=== PATIENT | male | born 1950 | race Caucasian/White ===

== ENCOUNTER → 2021-07-22 12:51 | Outpatient (BNVA) | payer MEDICARE, SELFPAY | PROVIDERS: PCP Internal Medicine; Visit Provider Urology | DX: R97.20 Elevated prostate specific antigen [PSA] (principal); N40.1 Benign prostatic hyperplasia with lower urinary tract symptoms; N13.8 Other obstructive and reflux uropathy; R33.9 Retention of urine, unspecified | CPT/HCPCS: 51798; 99212 ==

== ENCOUNTER 2022-01-16 11:23 | Outpatient (REF) | payer MEDICARE, SELFPAY ==
--- NOTE | ~2022-01-16 | US_ITS ---
EXAMINATION: US RETROPERITONEAL LIMITED (RENAL ONLY) CLINICAL INFORMATION: Acquired absence of kidney. COMPARISON: US abdomen complete 08/13/2019. CT abdomen and pelvis with contrast 12/09/2015. TECHNIQUE: Real-time imaging of the kidneys. FINDINGS: RIGHT KIDNEY: 12.6 x 7.0 x 7.4 cm (SAG x AP x TRV). The kidney is normal in size, contour, and echogenicity. Renal cortical thickness is normal. No renal calculi or focal parenchymal lesions. There is no hydronephrosis. LEFT KIDNEY: Surgically absent. US/US renal RT IMPRESSION: Mild right hydronephrosis of unknown etiology. No echogenic renal calculi seen. The left kidney is surgically absent.
[2022-01-16 14:23] LABS: Prostate Specific Antigen 4.12 ng/mL (<0.05-4.0)
== END 2022-01-16 11:24 | disposition home or self-care (01) ==
LOC: HO.HMGCX 11:23
PROVIDERS: Visit Provider Urology
DX: Z12.5 Encounter for screening for malignant neoplasm of prostate (principal); R97.20 Elevated prostate specific antigen [PSA]; Z90.5 Acquired absence of kidney
CPT/HCPCS: 36415; 76775; 84153

== ENCOUNTER → 2022-01-19 13:38 | Outpatient (BNVA) | payer MEDICARE, SELFPAY | PROVIDERS: PCP Internal Medicine; Visit Provider Urology | DX: N40.1 Benign prostatic hyperplasia with lower urinary tract symptoms (principal); R33.8 Other retention of urine; N13.8 Other obstructive and reflux uropathy; N31.9 Neuromuscular dysfunction of bladder, unspecified; Z79.899 Other long term (current) drug therapy | CPT/HCPCS: 51798; 99212 ==

== ENCOUNTER → 2022-02-23 09:43 | Outpatient (BNVA) | payer MEDICARE, SELFPAY | PROVIDERS: PCP Internal Medicine; Referring Provider Internal Medicine; Visit Provider Surgery | DX: L98.9 Disorder of the skin and subcutaneous tissue, unspecified (principal) | CPT/HCPCS: 99202 ==

== ENCOUNTER 2022-03-15 15:56 | Outpatient (REF) | payer MEDICARE, SELFPAY | END 2022-03-15 15:57 | disposition home or self-care (01) | LOC: HO.LNP 15:56 | PROVIDERS: PCP Internal Medicine; Visit Provider Surgery | DX: C44.619 Basal cell carcinoma of skin of left upper limb, including shoulder (principal) | CPT/HCPCS: 11403; 11604; 88305 ==

== ENCOUNTER → 2022-03-27 13:55 | Outpatient (BNVA) | payer MEDICARE, SELFPAY | PROVIDERS: PCP Internal Medicine; Visit Provider Surgery | DX: L98.9 Disorder of the skin and subcutaneous tissue, unspecified (principal) | CPT/HCPCS: 99212 ==

== ENCOUNTER → 2022-08-08 13:27 | Outpatient (BNVA) | payer MEDICARE, SELFPAY | PROVIDERS: PCP Internal Medicine; Visit Provider Urology | DX: N40.1 Benign prostatic hyperplasia with lower urinary tract symptoms (principal); N13.8 Other obstructive and reflux uropathy; R97.20 Elevated prostate specific antigen [PSA] | CPT/HCPCS: 51798; 99212 ==

== ENCOUNTER 2022-08-23 13:57 | Outpatient (REF) | payer MEDICARE, SELFPAY ==
--- NOTE | ~2022-08-23 | XR_ITS ---
EXAMINATION: XR LUMBOSACRAL SPINE CLINICAL INFORMATION: Spondylosis and lower back pain. COMPARISON: Portions of the MRI lumbar spine dated 07/28/2013. TECHNIQUE: AP and lateral views of the lumbar spine and lateral view of the lumbosacral junction. FINDINGS: There is bony demineralization. Vertebral body heights are normal. There is a moderate lumbar levoscoliosis. At L2-L3, there is mild posterior disc space narrowing. At L3-L4 and L4-L5, there is marked rightward disc space narrowing. At L5-S1, there is mild posterior disc space narrowing. No acute fracture or spondylolisthesis is seen. This multi-level lumbar spondylosis and facet arthropathy. There are aortoiliac atherosclerotic calcifications. There are left upper quadrant surgical clips. XR/XR lumbar spine 2-3V IMPRESSION: 1. No acute fracture or spondylolisthesis is seen. 2. There is a moderate lumbar levoscoliosis. 3. There is marked degenerative disc disease at L3-L4 and L4-L5, and mild degenerative disc disease is seen at L2-L3 and L5-S1. 4. There is multi-level lumbar spondylosis and facet arthropathy.
== END 2022-08-23 13:58 | disposition home or self-care (01) ==
LOC: HO.HMGCX 13:57
PROVIDERS: PCP Internal Medicine; Visit Provider Physical Medicine & Rehabilitation
DX: M54.51 Vertebrogenic low back pain (principal); M47.816 Spondylosis without myelopathy or radiculopathy, lumbar region
CPT/HCPCS: 72100

== ENCOUNTER 2022-11-21 15:57 | Outpatient (REF) | payer MEDICARE, SELFPAY ==
[2022-11-21 18:30] LABS: Appearance Urine Clear; Color Urine Yellow; Glucose Urine UA Negative (Negative); Leukocyte Esterase Urine Small (1+) (Negative); Nitrite Urine Negative (Negative); PH 5.5 (5.0-9.0); UMIC TRIGGER UA YES; Urine Blood Negative (Negative); Urine Ketones Negative (Negative); Urine Protein 30 (1+) mg/dL (Neg-Trace)
[2022-11-21 18:36] LABS: Bacteria Urine 4+ (None Seen); Hyaline Casts Urine 0-2 /LPF (0-2); RBC Urine 0-2 /HPF (0-2); Squamous Epithelial Cell Urine 0-2 /HPF (0-2); WBC Urine 21-50 /HPF (0-5)
== END 2022-11-21 15:58 | disposition home or self-care (01) ==
LOC: HO.LAB 15:57
PROVIDERS: PCP Internal Medicine; Visit Provider Urology
DX: R33.9 Retention of urine, unspecified (principal)
CPT/HCPCS: 81001; 87086

== ENCOUNTER 2022-12-08 14:36 | Outpatient (REF) | payer MEDICARE, SELFPAY | END 2022-12-08 14:37 | disposition home or self-care (01) | LOC: HO.HMGCLDS 14:36 | PROVIDERS: PCP Internal Medicine; Visit Provider Urology | DX: N40.1 Benign prostatic hyperplasia with lower urinary tract symptoms (principal); N13.8 Other obstructive and reflux uropathy | CPT/HCPCS: 81001; 87086 ==

== ENCOUNTER 2023-01-31 14:11 | Outpatient (REF) | payer MEDICARE, SELFPAY ==
[2023-01-31 18:10] LABS: Prostate Specific Antigen 4.94 ng/mL (<0.05-4.0)
== END 2023-01-31 14:12 | disposition home or self-care (01) ==
LOC: HO.HMGCLDS 14:11
PROVIDERS: PCP Internal Medicine; Visit Provider Urology
DX: Z12.5 Encounter for screening for malignant neoplasm of prostate (principal); R97.20 Elevated prostate specific antigen [PSA]
CPT/HCPCS: 36415; 84153

== ENCOUNTER 2023-02-06 12:50 | Outpatient (AMB) | payer MEDICARE, SELFPAY ==
--- NOTE | 2023-02-06 12:56 | A.OFFVIS_ITS ---
Intake Intake Visit Reasons: 6m/PSA/PVR(set) Intake Note: Patient is present for Follow Up PSA/PVR Urology Med: Tamsulosin Antibiotic Allergy: Clindamycin Blood Thinner: None Pharmacy: [facility] PVR: 202 Allergies prednisone [PREDNISONE] Allergy (Intermediate, Verified 02/06/23 13:03) HEART PALPATATIONS, heart palpitations clindamycin [CLINDAMYCIN] Allergy (Unknown, Verified 02/06/23 13:03) C-DIFF seasonal allergies Allergy (Unknown, Uncoded 02/06/23 13:03) Sneezing Medication List - Last Reconciled 02/06/23 by Nathan Hodges MD bethanechol chloride 50 mg PO BID 30 days cetirizine 10 mg PO DAILY clonazepam 1 tab PO BID dicyclomine 1 tab PO TID diltiazem HCl 240 mg PO DAILY levocetirizine 5 mg PO DAILY lisinopril 1 tab PO DAILY omeprazole 20 mg PO DAILY pravastatin 40 tabs PO DAILY sulfamethoxazole-trimethoprim 800-160 mg (Bactrim DS) 1 tab PO BID 7 days tamsulosin 0.8 mg (2 x 0.4 mg) PO BEDTIME 90 days HPI HPI Comments History of Present Illness Details Bertin Davalos is a very pleasant male. They are a patient of Dr Quiros. They are seen in the office today for the following urologic conditions. - lower urinary tract symptoms - recurrent UTI PVR today 200 Trial bethanechol Recommendation for male pelvic floor exercises May benefit from InterStim Neurogenic Bladder:? 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 PSA fell. Understands no sex with in 24 hours, no heavy exercise within 3 days ?12/20 PSA 6.1, 03/22 3.92 - falling. 07/24 5.4, 01/23 4.1, 01/24 4.9 ? They are here for ?further management for incomplete emptying neurogenic bladder.? Urinary retention initially found?occurred with C.diff episode in hospital early December 2015.? Cystoscopy results?prostate mild in size - minimal obstruction.? Current management?alpha blockers - tamsulosin ? Therapeutic plan?Follow PVR.? [facility] Medical History Acid reflux Anxiety Dyslipidemia H/O right bundle branch block HTN (hypertension) Skin lesion Spinal stenosis Stage 3 chronic kidney disease Surgical History H/O wisdom tooth extraction History of left nephrectomy History of surgical removal of skin lesion Family History Sister Dementia Father Leukemia Mother Brain cancer Paternal Grandfather Cancer Paternal Grandmother Cancer Social History Household Members: Spouse Housing: House Are you a primary post acute care registered nurse to a significant other at home: No Do you presently have visiting nurse or other home services: No Alcohol intake: current Alcohol intake frequency: 3 or more drinks per day Alcohol type: wine Patient Tobacco Use Status: Former Tobacco user service: Yes Current occupational status: retired Review of Systems Const Denies chills and Denies fever(s) Card Reports no additional complaints and Denies syncope Resp Denies cough GI Denies abdominal pain and Denies heartburn Reports as per HPI and Denies change in libido Neuro Denies syncope Psych Denies change in libido Endo Denies change in libido Physical Exam Const General: cooperative, healthy appearing, comfortable and no acute distress Orientation/consciousness: patient oriented x3 HEENT Face and sinus: Yes normal facial exam Mouth: moist mucous membranes Neck Neck: Yes normal visual inspection, Yes full ROM and Yes trachea midline Chest Chest palpation & inspection: normal inspection of the chest Resp Effort & Inspection: normal respiratory effort, able to speak in complete sentences and no respiratory distress GI Inspection: Yes normal to inspection Back/Spine/Pelvis Cervical Spine: normal cervical lordosis Thoracic/Lumbar Spine: thoracic and lumbar spine normal to inspection Skin General skin exam: no rashes or lesions noted Neuro General: patient oriented x3, gait normal, tone normal and moves all extremities Extrem General: Yes normal to inspection and Yes capillary refill normal Office Procedures Post Void Residual Post Residual Void Post Void Residual (PVR): 202 [id number] Void Residual by ultrasound Results AMB Urinalysis, Automated UA Leukoctes 0 Jose/uL Last Edit by CHIDI Castañeda on 02/06/23 13:08 UA Nitrite Negative Last Edit by CHIDI Castañeda on 02/06/23 13:08 UA Urobilinogen 0.2 mg/dL Last Edit by Tia Bales, RMA on 02/06/23 13:0 8 UA Protein 0 mg/dL Last Edit by Tia Bales, RMA on 02/06/23 13:08 UA pH 6.0 Last Edit by Tia Bales, RMA on 02/06/23 13:08 UA Blood 0 Chaz/uL Last Edit by Tia Bales, RMA on 02/06/23 13:08 UA Specific [place] 1.015 Last Edit by Tia Bales, RMA on 02/06/23 13: 08 UA Ketone Negative Last Edit by Tia Bales, RMA on 02/06/23 13:08 UA Bilirubin 0 mg/dL Last Edit by Tia Bales, RMA on 02/06/23 13:08 UA Glucose 0 mg/dL Last Edit by Tia Bales, RMA on 02/06/23 13:08 Results Reviewed Results Reviewed: Laboratory Last Values Urine pH (Auto) 6.0 02/06/23 13:07 Specific [place] (Auto) 1.015 02/06/23 13:07 Urine Protein (Auto) 0 mg/dL 02/06/23 13:07 Glucose (UA)(Auto) 0 mg/dL 02/06/23 13:07 Urine Ketones (Auto) Negative 02/06/23 13:07 Urine Blood (Auto) 0 Chaz/uL 02/06/23 13:07 Urine Nitrite (Auto) Negative 02/06/23 13:07 Urine Bilirubin (Auto) 0 mg/dL 02/06/23 13:07 Urine Urobilinogen (Auto) 0.2 mg/dL 02/06/23 13:07 Leukocyte Esterase (Auto) 0 Jose/uL 02/06/23 13:07 Assessment & Plan Assessment & Plan (1) BPH w urinary obs/LUTS: Code(s): N40.1 - Benign prostatic hyperplasia with lower urinary tract symptoms; N13.8 - Other obstructive and reflux uropathy (2) Urinary retention with incomplete bladder emptying: Code(s): R33.9 - Retention of urine, unspecified Plan Two month follow-up bethanechol Orders: Orders AMB Urinalysis Automated Today Z13.9 - Encounter for screening, unspecified AMB Post Void Residual by ultrasound Today N13.8 - Other obstructive and reflux uropathy, N40.1 - Benign prostatic hyperplasia with lower urinary tract symptoms Medications: New bethanechol chloride 50 mg PO BID 30 days 60 tabs 1RF N39.0 - Urinary tract infection, site not specified, R33.9 - Retention of urine, unspecified Patient Instructions: Imaging studies, laboratory and physical exam results were discussed and reviewed in detail. No major barriers to patient understanding were identified. An opportunity to ask questions regarding the treatment plan was provided. All questions were answered. The patient expressed understanding and agreement with the above treatment plan. The patient is aware they should contact our office by phone for worsening of their current condition or the appearance of new urologic symptoms. Compliance is encouraged with any medications and followup testing that is ordered. It is a privilege to participate in the urologic care of your patient. If you have any questions or concerns regarding treatment for the above conditions, or other urologic issues, please do not hesitate to contact me. The office telephone contact is [phone]. This note is constructed using voice recognition software. While every effort has been made to ensure accuracy journeyman pipefitter errors may have been included. Yours sincerely, Dr Nathan Hodges MD, FAINA [facility] - Urology Providers of Expert, Compassionate Care for the Genitourinary System Coding Level of Care Code Est Pt Level 4 (75830) Diagnoses BPH w urinary obs/LUTS N40.1; N13.8 Urinary retention with incomplete bladder emptying R33.9 CPT Codes Post Residual Void - PVR CPT Code: 56036-Xuxr Void Residual by ultrasound ([id number])
== END 2023-02-06 13:20 | disposition home or self-care (01) ==
PROVIDERS: PCP Internal Medicine; Visit Provider Urology
DX: N40.1 Benign prostatic hyperplasia with lower urinary tract symptoms (principal); N13.8 Other obstructive and reflux uropathy; R33.9 Retention of urine, unspecified; Z13.9 Encounter for screening, unspecified
CPT/HCPCS: 99214

== ENCOUNTER → 2023-02-06 12:50 | Outpatient (BNVA) | payer MEDICARE, SELFPAY | PROVIDERS: Visit Provider Urology | DX: N40.1 Benign prostatic hyperplasia with lower urinary tract symptoms (principal); N13.8 Other obstructive and reflux uropathy; R33.8 Other retention of urine | CPT/HCPCS: 51798; 81003; 99212 ==

== ENCOUNTER 2023-05-08 12:53 | Outpatient (AMB) | payer MEDICARE, SELFPAY ==
--- NOTE | 2023-05-08 13:05 | A.OFFVIS_ITS ---
Intake Intake Visit Reasons: 2m/PVR Intake Note: Patient is Present for Follow Up Urology Medication: Bethanechol, Tamsulosin Antibiotic Allergies: Clindamycin Blood Thinners: None PVR: 0 Complaints: Patient states that bethanechol has been working really. States that he has been double voiding at home Allergies prednisone [PREDNISONE] Allergy (Intermediate, Verified 05/08/23 13:06) HEART PALPATATIONS, heart palpitations clindamycin [CLINDAMYCIN] Allergy (Unknown, Verified 05/08/23 13:06) C-DIFF seasonal allergies Allergy (Unknown, Uncoded 05/08/23 13:06) Sneezing HPI HPI Comments History of Present Illness Details Bertin Davalos is a very pleasant male. He is a patient of Dr Quiros. He is seen for the following urologic conditions. - lower urinary tract symptoms - incomplete bladder emptying - recurrent UTI PVR today 0 cc Follow-up from trial of bethanechol Prior discussion regarding pelvic floor exercises and InterStim Recommendation for male pelvic floor exercises May benefit from InterStim Neurogenic Bladder:? 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 PSA fell. Understands no sex with in 24 hours, no heavy exercise within 3 days ?12/20 PSA 6.1, 03/22 3.92 - falling. 07/24 5.4, 01/23 4.1, 01/24 4.9 ? They are here for ?further management for incomplete emptying neurogenic bladder.? Urinary retention initially found?occurred with C.diff episode in hospital early December 2015.? Cystoscopy results?prostate mild in size - minimal obstruction.? Current management?alpha blockers - tamsulosin - prior PVR 200 ? Therapeutic plan?Follow PVR.? PFSH Medical History Skin lesion Spinal stenosis H/O right bundle branch block Stage 3 chronic kidney disease Anxiety Acid reflux Dyslipidemia HTN (hypertension) Surgical History History of surgical removal of skin lesion H/O wisdom tooth extraction History of left nephrectomy Family History Sister Dementia Father Leukemia Mother Brain cancer Paternal Grandfather Cancer Paternal Grandmother Cancer Social History Household Members: Spouse Housing: House Are you a primary child care centre director to a significant other at home: No Do you presently have visiting nurse or other home services: No Alcohol intake: current Alcohol intake frequency: 3 or more drinks per day Alcohol type: wine Patient Tobacco Use Status: Former Tobacco user service: Yes Current occupational status: retired Review of Systems Const Denies chills and Denies fever(s) Card Reports no additional complaints and Denies syncope Resp Denies cough GI Denies abdominal pain and Denies heartburn Reports as per HPI and Denies change in libido Neuro Denies syncope Psych Denies change in libido Endo Denies change in libido Physical Exam Const General: cooperative, healthy appearing, comfortable and no acute distress Orientation/consciousness: patient oriented x3 HEENT Face and sinus: Yes normal facial exam Mouth: moist mucous membranes Neck Neck: Yes normal visual inspection, Yes full ROM and Yes trachea midline Chest Chest palpation & inspection: normal inspection of the chest Resp Effort & Inspection: normal respiratory effort, able to speak in complete sentences and no respiratory distress GI Inspection: Yes normal to inspection Back/Spine/Pelvis Cervical Spine: normal cervical lordosis Thoracic/Lumbar Spine: thoracic and lumbar spine normal to inspection Skin General skin exam: no rashes or lesions noted Neuro General: patient oriented x3, gait normal, tone normal and moves all extremities Extrem General: Yes normal to inspection and Yes capillary refill normal Office Procedures Post Void Residual Post Residual Void Post Void Residual (PVR): 0 [id number] Void Residual by ultrasound Results AMB Urinalysis, Automated UA Leukoctes 0 Jose/uL Last Edit by CHIDI Castañeda on 05/08/23 13:14 UA Nitrite Negative Last Edit by CHIDI Castañeda on 05/08/23 13:14 UA Urobilinogen 0.2 mg/dL Last Edit by CHIDI Castañeda on 05/08/23 13:1 4 UA Protein 15 mg/dL Last Edit by CHIDI Castañeda on 05/08/23 13:14 UA pH 6.0 Last Edit by CHIDI Castañeda on 05/08/23 13:14 UA Blood 0 Chaz/uL Last Edit by Tia Bales, RMA on 05/08/23 13:14 UA Specific [place] 1.020 Last Edit by Tia Bales, RMA on 05/08/23 13: 14 UA Ketone Negative Last Edit by Tia Bales, RMA on 05/08/23 13:14 UA Bilirubin 0 mg/dL Last Edit by Tia Bales, RMA on 05/08/23 13:14 UA Glucose 0 mg/dL Last Edit by Tia Muñizro, RMA on 05/08/23 13:14 Results Reviewed Results Reviewed: Laboratory Last Values Urine pH (Auto) 6.0 05/08/23 13:07 Specific [place] (Auto) 1.020 05/08/23 13:07 Urine Protein (Auto) 15 mg/dL 05/08/23 13:07 Glucose (UA)(Auto) 0 mg/dL 05/08/23 13:07 Urine Ketones (Auto) Negative 05/08/23 13:07 Urine Blood (Auto) 0 Chaz/uL 05/08/23 13:07 Urine Nitrite (Auto) Negative 05/08/23 13:07 Urine Bilirubin (Auto) 0 mg/dL 05/08/23 13:07 Urine Urobilinogen (Auto) 0.2 mg/dL 05/08/23 13:07 Leukocyte Esterase (Auto) 0 Jose/uL 05/08/23 13:07 Assessment & Plan Assessment & Plan (1) Urinary retention with incomplete bladder emptying: Code(s): R33.9 - Retention of urine, unspecified Plan 6 month follow-up PVR Orders: Orders AMB Urinalysis Automated Today Z13.9 - Encounter for screening, unspecified AMB Post Void Residual by ultrasound Today R33.9 - Retention of urine, unspecified Patient Instructions: Imaging studies, laboratory and physical exam results were discussed and reviewed in detail. No major barriers to patient understanding were identified. An opportunity to ask questions regarding the treatment plan was provided. All questions were answered. The patient expressed understanding and agreement with the above treatment plan. The patient is aware they should contact our office by phone for worsening of their current condition or the appearance of new urologic symptoms. Compliance is encouraged with any medications and followup testing that is ordered. It is a privilege to participate in the urologic care of your patient. If you have any questions or concerns regarding treatment for the above conditions, or other urologic issues, please do not hesitate to contact me. The office telephone contact is [phone]. This note is constructed using voice recognition software. While every effort has been made to ensure accuracy rubber ball finisher errors may have been included. Yours sincerely, Dr Nathan Hodges MD, FAINA [facility] - Urology Providers of Expert, Compassionate Care for the Genitourinary System Coding Level of Care Code Est Pt Level 3 (62808) Diagnoses Urinary retention with incomplete bladder emptying R33.9 CPT Codes Post Residual Void - PVR CPT Code: 04392-Ysid Void Residual by ultrasound ([id number])
== END 2023-05-08 13:31 | disposition home or self-care (01) ==
PROVIDERS: PCP Internal Medicine; Visit Provider Urology
DX: Z13.9 Encounter for screening, unspecified (principal); R33.9 Retention of urine, unspecified
CPT/HCPCS: 99213

== ENCOUNTER → 2023-05-08 12:53 | Outpatient (BNVA) | payer MEDICARE, SELFPAY | PROVIDERS: PCP Internal Medicine; Visit Provider Urology | DX: R33.9 Retention of urine, unspecified (principal) | CPT/HCPCS: 51798; 81003; 99212 ==

== ENCOUNTER 2023-11-09 12:53 | Outpatient (AMB) | payer MEDICARE, SELFPAY ==
--- NOTE | 2023-11-09 13:06 | A.OFFVIS_ITS ---
Intake Visit Reasons: 6m/PVR Intake Note: Patient is Present for PVR/ Urology Med: Bethanechol, Tamsulosin Antibiotic Allergy:Clindamycin Blood Thinner:None Last PVR: 0 Todays PVR:42 Allergies prednisone [PREDNISONE] Allergy (Intermediate, Verified 01/30/24 14:42) HEART PALPATATIONS, heart palpitations clindamycin [CLINDAMYCIN] Allergy (Unknown, Verified 01/30/24 14:42) C-DIFF seasonal allergies Allergy (Unknown, Uncoded 01/30/24 14:42) Sneezing HPI Comments Details: Bertin Davalos is a very pleasant male. He is a patient of Dr Quiros. He is seen for the following urologic conditions. - lower urinary tract symptoms - incomplete bladder emptying - recurrent UTI PVR remains less than 50 cc Doing well bethanechol Like to continue Prior discussion regarding pelvic floor exercises and InterStim Recommendation for male pelvic floor exercises May benefit from InterStim Neurogenic Bladder:? 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 PSA fell. Understands no sex with in 24 hours, no heavy exercise within 3 days ?12/20 PSA 6.1, 03/22 3.92 - falling. 07/24 5.4, 01/23 4.1, 01/24 4.9 ? They are here for ?further management for incomplete emptying neurogenic bladder.? Urinary retention initially found?occurred with C.diff episode in hospital early December 2015.? Cystoscopy results?prostate mild in size - minimal obstruction.? Current management?alpha blockers - tamsulosin - prior PVR 200 ? Therapeutic plan?Follow PVR.? PFSH Medical History (Updated 01/30/24 @ 15:14 by Darrick Rodas MD) Facial skin lesion Skin lesion Spinal stenosis H/O right bundle branch block Stage 3 chronic kidney disease Anxiety Acid reflux Dyslipidemia HTN (hypertension) Surgical History (Updated 02/05/24 @ 15:14 by CHIDI Pearce) History of surgical removal of skin lesion (~01/30/24) H/O wisdom tooth extraction History of left nephrectomy Family History Sister Dementia Father Leukemia Mother Brain cancer Paternal Grandfather Cancer Paternal Grandmother Cancer Social History Household Members: Spouse Housing: House Are you a primary career representative to a significant other at home: No Do you presently have visiting nurse or other home services: No Alcohol intake: current Alcohol intake frequency: 3 or more drinks per day Alcohol type: wine Patient Tobacco Use Status: Former Tobacco user service: Yes Current occupational status: retired Review of Systems Const Denies chills and Denies fever(s) Card Reports no additional complaints and Denies syncope Resp Denies cough GI Denies abdominal pain and Denies heartburn Reports as per HPI and Denies change in libido Neuro Denies syncope Psych Denies change in libido Endo Denies change in libido Physical Exam Const General: cooperative, healthy appearing, comfortable and no acute distress Orientation/consciousness: patient oriented x3 HEENT Face and sinus: Yes normal facial exam Mouth: moist mucous membranes Neck Neck: Yes normal visual inspection, Yes full ROM and Yes trachea midline Chest Chest palpation & inspection: normal inspection of the chest Resp Effort & Inspection: normal respiratory effort, able to speak in complete sentences and no respiratory distress GI Inspection: Yes normal to inspection Back/Spine/Pelvis Cervical Spine: normal cervical lordosis Thoracic/Lumbar Spine: thoracic and lumbar spine normal to inspection Skin General skin exam: no rashes or lesions noted Neuro General: patient oriented x3, gait normal, tone normal and moves all extremities Extrem General: Yes normal to inspection and Yes capillary refill normal Office Procedures Post Void Residual Post Residual Void Post Void Residual (PVR): 42 [id number]-Zuix Void Residual by ultrasound Assessment & Plan Assessment & Plan (1) Elevated PSA: Code(s): R97.20 - Elevated prostate specific antigen [PSA] Category: Medical (2) BPH w urinary obs/LUTS: Code(s): N40.1 - Benign prostatic hyperplasia with lower urinary tract symptoms; N13.8 - Other obstructive and reflux uropathy Category: Medical Plan Continue interval surveillance with bladder residuals Orders: Orders AMB Post Void Residual by ultrasound 11/09/23 R33.9 - Retention of urine, unspecified Patient Instructions: Imaging studies, laboratory and physical exam results were discussed and reviewed in detail. No major barriers to patient understanding were identified. An opportunity to ask questions regarding the treatment plan was provided. All questions were answered. The patient expressed understanding and agreement with the above treatment plan. The patient is aware they should contact our office by phone for worsening of their current condition or the appearance of new urologic symptoms. Compliance is encouraged with any medications and followup testing that is ordered. It is a privilege to participate in the urologic care of your patient. If you have any questions or concerns regarding treatment for the above conditions, or other urologic issues, please do not hesitate to contact me. The office telephone contact is [phone]. This note is constructed using voice recognition software. While every effort has been made to ensure accuracy ed physicians errors may have been included. Yours sincerely, Dr Nathan Hodges MD, FAINA [facility] - Urology Providers of Expert, Compassionate Care for the Genitourinary System Coding Level of Care Code Est Pt Level 3 (68952) Diagnoses Elevated PSA R97.20 BPH w urinary obs/LUTS N40.1; N13.8 CPT Codes Post Residual Void - PVR CPT Code: 77667-Zuqu Void Residual by ultrasound ([id number])
== END 2023-11-09 13:55 | disposition home or self-care (01) ==
PROVIDERS: PCP Internal Medicine; Visit Provider Urology
DX: R97.20 Elevated prostate specific antigen [PSA] (principal); N40.1 Benign prostatic hyperplasia with lower urinary tract symptoms; N13.8 Other obstructive and reflux uropathy
CPT/HCPCS: 99213

== ENCOUNTER → 2023-11-09 12:53 | Outpatient (BNVA) | payer MEDICARE, SELFPAY | PROVIDERS: PCP Internal Medicine; Visit Provider Urology | DX: N40.1 Benign prostatic hyperplasia with lower urinary tract symptoms (principal); N13.8 Other obstructive and reflux uropathy; R33.9 Retention of urine, unspecified; N39.0 Urinary tract infection, site not specified | CPT/HCPCS: 51798; 99212 ==

== ENCOUNTER 2024-01-30 13:56 | Outpatient (REF) | payer MEDICARE, SELFPAY | END 2024-01-30 13:57 | disposition home or self-care (01) | LOC: HO.LNP 13:56 | PROVIDERS: PCP Internal Medicine; Visit Provider Surgery | DX: L91.8 Other hypertrophic disorders of the skin (principal) | CPT/HCPCS: 11441; 88304; 99212 ==

== ENCOUNTER 2024-01-30 13:56 | Outpatient (AMB) | payer MEDICARE, SELFPAY ==
--- NOTE | 2024-01-30 14:35 | MHC.OFFVIS ---
Vital Signs 01/30/24 14:41 Height 5 ft 11 in Weight 175 lb BMI 24.4 Intake Visit Reasons: skin tag on face Intake Note: This patient presents for skin tag on face. Pt c/o; reports wants skin lesion on face excised, increased in size overtime. Clinical Technologist Required: No Accompanied by: Spouse Allergies prednisone [PREDNISONE] Allergy (Intermediate, Verified 01/30/24 14:42) HEART PALPATATIONS, heart palpitations clindamycin [CLINDAMYCIN] Allergy (Unknown, Verified 01/30/24 14:42) C-DIFF seasonal allergies Allergy (Unknown, Uncoded 01/30/24 14:42) Sneezing Medication List - Last Reconciled 01/30/24 by Darrick Rodas MD bethanechol chloride 50 mg PO BID 90 days cetirizine 10 mg PO DAILY clonazepam 1 tab PO BID dicyclomine 1 tab PO TID diltiazem HCl CD 240 mg PO DAILY levocetirizine 5 mg PO DAILY lisinopril 1 tab PO DAILY omeprazole 20 mg PO DAILY pravastatin 40 tabs PO DAILY tamsulosin 0.8 mg (2 x 0.4 mg) PO BEDTIME 90 days HPI HPI skin tag on face: Details: He has a skin lesion on the right cheek that he wants removed. He said he has had this for several months and this has been increasing in size. [facility] Medical History (Updated 01/30/24 @ 15:14 by Darrick Rodas MD) Facial skin lesion Skin lesion Spinal stenosis H/O right bundle branch block Stage 3 chronic kidney disease Anxiety Acid reflux Dyslipidemia HTN (hypertension) Surgical History History of surgical removal of skin lesion H/O wisdom tooth extraction History of left nephrectomy Family History Sister Dementia Father Leukemia Mother Brain cancer Paternal Grandfather Cancer Paternal Grandmother Cancer Social History Household Members: Spouse Housing: House Are you a primary foster care case manager to a significant other at home: No Do you presently have visiting nurse or other home services: No Alcohol intake: current Alcohol intake frequency: 3 or more drinks per day Alcohol type: wine Patient Tobacco Use Status: Former Tobacco user service: Yes Current occupational status: retired Review of Systems Const Denies chills and Denies fever(s) Card Denies chest pain, Denies dyspnea and Denies dyspnea on exertion Resp Denies cough, Denies dyspnea and Denies dyspnea on exertion GI Denies hematochezia and Denies change in bowel habits Denies hematuria and Denies difficulty urinating Musc Denies back pain and Denies limited range of motion Neuro Denies focal weakness and Denies convulsions Psych Denies depression and Denies mood swings Physical Exam Vital Signs: BMI result Body Mass Index 24.4 Const General: comfortable and no acute distress Orientation/consciousness: patient oriented x3 HEENT Other: Soft fleshy mass, about 0.8 cm in widest dimension on the right cheek near the lateral aspect of the eye Neck Neck: Yes no lymphadenopathy Resp Auscultation: clear to auscultation bilaterally Cardio Rhythm: regular rhythm GI Palpation (GI): Soft to palpation, nontender and no guarding Neuro General: patient oriented x3 Office Procedures Excision Details: The area was prepped and draped. Lidocaine 1% was used for local anesthesia. An elliptical incision was made on the skin surrounding base of the lesion using blade 15. The lesion was about 8 mm in widest dimension.. This was carried down through the full-thickness of the skin to excise the entire lesion. The incision was closed with full-thickness nylon 5-0 interrupted sutures. He tolerated procedure well. There was minimal blood loss. There were no immediate complications. 25705-[id number] face/ear/eyelid/nose/lip/mucous membrane 0.6cm-1cm Procedure code (CPT) selection complete Assessment & Plan Assessment & Plan (1) Facial skin lesion: Code(s): L98.9 - Disorder of the skin and subcutaneous tissue, unspecified Category: Medical Plan: He wanted this excised because of discomfort. Excision was done in the office under local anesthesia. He tolerated the procedure well. We will send the specimen for path report I will see him in the office in about 2 weeks for wound check. Coding Level of Care Code Est Pt Level 2 (74105) Diagnoses Facial skin lesion L98.9 CPT Codes Face/Ear/Eyelid/Nose/Lip/Mucous Membrane - CPT: 96830-Nvcborxr face/ear/eyelid/nose/lip/mucous membrane 0.6cm-1cm ([id number])
[2024-01-30 14:41] VITALS: BMI 24.4
== END 2024-01-30 15:34 | disposition home or self-care (01) ==
PROVIDERS: PCP Internal Medicine; Visit Provider Surgery
DX: L98.9 Disorder of the skin and subcutaneous tissue, unspecified (principal); B07.9 Viral wart, unspecified
CPT/HCPCS: 11441; 99213

== ENCOUNTER 2024-02-07 10:25 | Outpatient (AMB) | payer MEDICARE, SELFPAY ==
--- NOTE | 2024-02-07 10:26 | A.OFFVIS_ITS ---
Intake Visit Reasons: s/p skin tag on face/stitch removal Intake Note: This patient presents for a follow-up s/p skin tag on face/stitch removal. Pt c/o; reports no complaints. Order Packer Or Packager Required: No Accompanied by: Spouse Allergies prednisone [PREDNISONE] Allergy (Intermediate, Verified 02/07/24 10:26) HEART PALPATATIONS, heart palpitations clindamycin [CLINDAMYCIN] Allergy (Unknown, Verified 02/07/24 10:26) C-DIFF seasonal allergies Allergy (Unknown, Uncoded 02/07/24 10:26) Sneezing HPI HPI s/p skin tag on face/stitch removal: Details: He underwent excision of a skin lesions on her right cheek near the eye last 01/31/2024. This was done under local anesthesia in the office. He tolerated procedure well He says that he had noticed this area of bogginess below this about the day prior to the procedure. He denies any pain or tenderness. [facility] Medical History Facial skin lesion Skin lesion Spinal stenosis H/O right bundle branch block Stage 3 chronic kidney disease Anxiety Acid reflux Dyslipidemia HTN (hypertension) Surgical History History of surgical removal of skin lesion (~01/30/24) H/O wisdom tooth extraction History of left nephrectomy Family History Sister Dementia Father Leukemia Mother Brain cancer Paternal Grandfather Cancer Paternal Grandmother Cancer Social History Household Members: Spouse Housing: House Are you a primary housekeeper caregiver to a significant other at home: No Do you presently have visiting nurse or other home services: No Alcohol intake: current Alcohol intake frequency: 3 or more drinks per day Alcohol type: wine Patient Tobacco Use Status: Former Tobacco user service: Yes Current occupational status: retired Review of Systems Const Denies chills and Denies fever(s) Physical Exam Const General: comfortable and no acute distress HEENT Other: Excision site well healed, not infected, sutures intact, area of bogginess below this likely edema fluid Assessment & Plan Assessment & Plan (1) Facial skin lesion: Code(s): L98.9 - Disorder of the skin and subcutaneous tissue, unspecified Category: Medical Plan: Status post excision. I removed his sutures. The wound edges remained well apposed. The incisions well healed. His path report shows a verruca. He understands the benign nature of this pathology. He can follow up on a p.r.n. basis. Coding Level of Care Code Global (66535) Diagnoses Facial skin lesion L98.9
== END 2024-02-07 10:39 | disposition home or self-care (01) ==
PROVIDERS: PCP Internal Medicine; Visit Provider Surgery
DX: L98.9 Disorder of the skin and subcutaneous tissue, unspecified (principal)
CPT/HCPCS: 99024

== ENCOUNTER → 2024-02-07 10:25 | Outpatient (BNVA) | payer MEDICARE, SELFPAY | PROVIDERS: PCP Internal Medicine; Visit Provider Surgery | DX: Z48.02 Encounter for removal of sutures (principal); Z87.2 Personal history of diseases of the skin and subcutaneous tissue; Z98.890 Other specified postprocedural states | CPT/HCPCS: 99212 ==

== ENCOUNTER 2024-05-13 13:22 | Outpatient (AMB) | payer MEDICARE, SELFPAY ==
--- NOTE | 2024-05-13 13:29 | MHC.OFFVIS ---
Intake Visit Reasons: 6M/PVR Intake Note: Patient is present for 6m/PVR Urology Medication:tamsulosin,bethanechol Antibiotic Allergy:clindamycin Blood Thinner:none Last PVR:42ml's Todays PVR:0ml's Rug Layer Required: No Allergies prednisone [PREDNISONE] Allergy (Intermediate, Verified 05/13/24 13:31) HEART PALPATATIONS, heart palpitations clindamycin [CLINDAMYCIN] Allergy (Unknown, Verified 05/13/24 13:31) C-DIFF seasonal allergies Allergy (Unknown, Uncoded 05/13/24 13:31) Sneezing HPI Comments Details: Bertin Davaols is a very pleasant male. He is a patient of Dr Quiros. He is seen for the following urologic conditions. - lower urinary tract symptoms - incomplete bladder emptying - recurrent UTI PVR remains less than 50 cc Doing well bethanechol We will continue Needs interval surveillance Check PSA in six-month Neurogenic Bladder:? 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 PSA fell. Understands no sex with in 24 hours, no heavy exercise within 3 days ?12/20 PSA 6.1, 03/22 3.92 - falling. 07/24 5.4, 01/23 4.1, 01/24 4.9 ? They are here for ?further management for incomplete emptying neurogenic bladder.? Urinary retention initially found?occurred with C.diff episode in hospital early December 2015.? Cystoscopy results?prostate mild in size - minimal obstruction.? Current management?alpha blockers - tamsulosin - prior PVR 200 ? Therapeutic plan?Follow PVR.? PFSH Medical History Facial skin lesion Skin lesion Spinal stenosis H/O right bundle branch block Stage 3 chronic kidney disease Anxiety Acid reflux Dyslipidemia HTN (hypertension) Surgical History History of surgical removal of skin lesion (~01/30/24) H/O wisdom tooth extraction History of left nephrectomy Family History Sister Dementia Father Leukemia Mother Brain cancer Paternal Grandfather Cancer Paternal Grandmother Cancer Social History Household Members: Spouse Housing: House Are you a primary palliative care physician to a significant other at home: No Do you presently have visiting nurse or other home services: No Alcohol intake: current Alcohol intake frequency: 3 or more drinks per day Alcohol type: wine Patient Tobacco Use Status: Former Tobacco user service: Yes Current occupational status: retired Review of Systems Const Denies chills and Denies fever(s) Card Reports no additional complaints and Denies syncope Resp Denies cough GI Denies abdominal pain and Denies heartburn Reports as per HPI and Denies change in libido Neuro Denies syncope Psych Denies change in libido Endo Denies change in libido Physical Exam Const General: cooperative, healthy appearing, comfortable and no acute distress Orientation/consciousness: patient oriented x3 HEENT Face and sinus: Yes normal facial exam Mouth: moist mucous membranes Neck Neck: Yes normal visual inspection, Yes full ROM and Yes trachea midline Chest Chest palpation & inspection: normal inspection of the chest Resp Effort & Inspection: normal respiratory effort, able to speak in complete sentences and no respiratory distress GI Inspection: Yes normal to inspection Back/Spine/Pelvis Cervical Spine: normal cervical lordosis Thoracic/Lumbar Spine: thoracic and lumbar spine normal to inspection Skin General skin exam: no rashes or lesions noted Neuro General: patient oriented x3, gait normal, tone normal and moves all extremities Extrem General: Yes normal to inspection and Yes capillary refill normal Office Procedures Post Void Residual Post Residual Void Post Void Residual (PVR): 0 [id number]-[id number] Void Residual by ultrasound Results AMB Urinalysis, Automated UA Leukoctes 70 Jose/uL Last Edit by FOZIA Miller on 05/13/24 13:41 UA Nitrite Positive Last Edit by FOZIA Miller on 05/13/24 13:41 UA Urobilinogen 0.2 mg/dL Last Edit by FOZIA Miller on 05/13/24 13:41 UA Protein 15 mg/dL Last Edit by FOZIA Miller on 05/13/24 13:41 UA pH 6.0 Last Edit by FOZIA Miller on 05/13/24 13:41 UA Blood 80 Chaz/uL Last Edit by FOZIA Miller on 05/13/24 13:41 UA Specific [place] 1.025 Last Edit by FOZIA Miller on 05/13/24 13:41 UA Ketone Positive Last Edit by FOZIA Miller on 05/13/24 13:41 UA Bilirubin 0 mg/dL Last Edit by FOZIA Miller on 05/13/24 13:41 UA Glucose 0 mg/dL Last Edit by FOZIA Miller on 05/13/24 13:41 Results Reviewed Results Reviewed: Laboratory Last Values Urine pH (Auto) 6.0 05/13/24 13:40 Specific [place] (Auto) 1.025 05/13/24 13:40 Urine Protein (Auto) 15 mg/dL 05/13/24 13:40 Glucose (UA)(Auto) 0 mg/dL 05/13/24 13:40 Urine Ketones (Auto) Positive 05/13/24 13:40 Urine Blood (Auto) 80 Chaz/uL 05/13/24 13:40 Urine Nitrite (Auto) Positive 05/13/24 13:40 Urine Bilirubin (Auto) 0 mg/dL 05/13/24 13:40 Urine Urobilinogen (Auto) 0.2 mg/dL 05/13/24 13:40 Leukocyte Esterase (Auto) 70 Jose/uL 05/13/24 13:40 Assessment & Plan Assessment & Plan (1) BPH w urinary obs/LUTS: Code(s): N40.1 - Benign prostatic hyperplasia with lower urinary tract symptoms; N13.8 - Other obstructive and reflux uropathy Category: Medical (2) Elevated PSA: Code(s): R97.20 - Elevated prostate specific antigen [PSA] Category: Medical Plan Six-month follow-up PSA Orders: Orders Prostate Specific Antigen 6 Months R97.20 - Elevated prostate specific antigen [PSA] AMB Urinalysis Automated Today Z13.9 - Encounter for screening, unspecified Patient Instructions: Imaging studies, laboratory and physical exam results were discussed and reviewed in detail. No major barriers to patient understanding were identified. An opportunity to ask questions regarding the treatment plan was provided. All questions were answered. The patient expressed understanding and agreement with the above treatment plan. The patient is aware they should contact our office by phone for worsening of their current condition or the appearance of new urologic symptoms. Compliance is encouraged with any medications and followup testing that is ordered. It is a privilege to participate in the urologic care of your patient. If you have any questions or concerns regarding treatment for the above conditions, or other urologic issues, please do not hesitate to contact me. The office telephone contact is [phone]. This note is constructed using voice recognition software. While every effort has been made to ensure accuracy director wholesale errors may have been included. Yours sincerely, Dr Nathan Hodges MD, [facility] - Urology Providers of Expert, Compassionate Care for the Genitourinary System Coding Level of Care Code Est Pt Level 3 (63104) Diagnoses BPH w urinary obs/LUTS N40.1; N13.8 Elevated PSA R97.20 CPT Codes Post Residual Void - PVR CPT Code: 25717-Lkso Void Residual by ultrasound ([id number])
== END 2024-05-13 13:59 | disposition home or self-care (01) ==
PROVIDERS: PCP Internal Medicine; Visit Provider Urology
DX: N40.1 Benign prostatic hyperplasia with lower urinary tract symptoms (principal); N13.8 Other obstructive and reflux uropathy; R97.20 Elevated prostate specific antigen [PSA]; Z13.9 Encounter for screening, unspecified
CPT/HCPCS: 99213

== ENCOUNTER → 2024-05-13 13:22 | Outpatient (BNVA) | payer MEDICARE, SELFPAY | PROVIDERS: PCP Internal Medicine; Visit Provider Urology | DX: N40.1 Benign prostatic hyperplasia with lower urinary tract symptoms (principal); N13.8 Other obstructive and reflux uropathy; R97.20 Elevated prostate specific antigen [PSA] | CPT/HCPCS: 51798; 81003; 99212 ==

== ENCOUNTER 2024-05-15 23:38 | Emergency (ER) | payer MEDICARE, SELFPAY ==
--- NOTE | 2024-05-16 | ECG_ITS ---
Test Reason : IRRIGULAR HEART RATE Blood Pressure : / mmHG Vent. Rate : 118 BPM Atrial Rate : 118 BPM P-R Int : 136 ms QRS Dur : 134 ms QT Int : 344 ms P-R-T Axes : 042 123 056 degrees QTc Int : 482 ms Sinus tachycardia with Premature supraventricular complexes and with occasional Premature ventricular complexes Right bundle branch block Left posterior fascicular block Bifascicular block Abnormal ECG When compared with ECG of 20-JUL-2019 06:53, Premature supraventricular complexes are now Present Left posterior fascicular block is now Present T wave inversion no longer evident in Inferior leads Referred By: Generic ED Physician Electronically Signed By:LISHA SHELBY MD
[2024-05-16 00:10] VITALS: BP 135/75; PULSE 95; RESP 20; TEMP 36.8; O2SAT 93; BMI 24.4
--- NOTE | 2024-05-16 01:07 | MHC.EDTECH ---
this tech asumed care @0412
[2024-05-16 01:12] VITALS: BP 134/76; PULSE 96; RESP 15; TEMP 36.9; O2SAT 93
[2024-05-16 01:18] LABS: Color Urine Dark Yellow; Glucose Urine UA Negative (Negative); Leukocyte Esterase Urine Moderate (2+) (Negative); Nitrite Urine Negative (Negative); PH 5.5 (5.0-9.0); Specific Gravity - Urine 1.025 (1.005-1.025); UMIC TRIGGER UACC YES; Urine Blood Moderate (2+) (Negative); Urine Ketones Trace mg/dL (Negative); Urine Protein 300 (3+) mg/dL (Neg-Trace)
[2024-05-16 01:19] LABS: Appearance Urine Hazy; Bacteria Urine 3+ (None Seen); RBC Urine >20 /HPF (0-2); Squamous Epithelial Cell Urine 0-2 /HPF (0-2); UACC Culture Trigger YES; WBC Urine >50 /HPF (0-5)
--- NOTE | 2024-05-16 02:29 | ED.MALEGU ---
HPI - Male Genitourinary General Chief complaint: Urogenital-Male Stated complaint: over active bladder Time Seen by Provider: 05/16/24 02:29 Source: patient Mode of arrival: ambulatory Limitations: no limitations History of Present Illness ED Provider: HPI Narrative: Patient has neurogenic bladder on Flomax and bethanechol noticed for last 24 hours less amount of urine and fullness PVC was 338 cc no fever no chills no hematuria no history of kidney stone Related Data Home Medications ?Medication ?Instructions ?Recorded ?Confirmed clonazepam 1 mg tablet 1 tab PO BID 04/19/20 01/30/24 dicyclomine 20 mg tablet 1 tab PO TID 04/19/20 01/30/24 lisinopril 2.5 mg tablet 1 tab PO DAILY 04/19/20 01/30/24 pravastatin 40 mg tablet 40 tab PO DAILY 04/19/20 01/30/24 diltiazem HCl 240 mg 240 mg PO DAILY 07/22/21 01/30/24 capsule,extended release 24 hr omeprazole 20 mg capsule,delayed 20 mg PO DAILY 07/22/21 01/30/24 release cetirizine 10 mg tablet 10 mg PO DAILY 01/19/22 01/30/24 levocetirizine 5 mg tablet 5 mg PO DAILY 01/19/22 01/30/24 Previous Rx's ?Medication ?Instructions ?Recorded bethanechol chloride 50 mg tablet 50 mg PO BID 90 days #180 tabs 11/09/23 tamsulosin 0.4 mg capsule 0.4 mg PO BEDTIME 90 days #90 caps 02/05/24 cefuroxime axetil 500 mg tablet 500 mg PO BID 7 days #14 tabs 05/16/24 Allergies Allergy/AdvReac Type Severity Reaction Status Date / Time prednisone [PREDNISONE] Allergy Intermediate HEART Verified 05/16/24 00:15 PALPATATIONS, heart palpitations clindamycin [CLINDAMYCIN] Allergy Unknown C-DIFF Verified 05/16/24 00:15 seasonal allergies Allergy Unknown Sneezing Uncoded 05/13/24 13:31 Review of Systems Review of Systems: Yes all other systems are reviewed and are negative PMFSH Past Medical History Medical History Facial skin lesion Skin lesion Spinal stenosis H/O right bundle branch block Stage 3 chronic kidney disease Anxiety Acid reflux Dyslipidemia HTN (hypertension) Surgical History History of surgical removal of skin lesion (~01/30/24) H/O wisdom tooth extraction History of left nephrectomy Family History Family History Sister Dementia Father Leukemia Mother Brain cancer Paternal Grandfather Cancer Paternal Grandmother Cancer Social History Social History Household Members: Spouse Housing: House Are you a primary physician locums urgent care to a significant other at home: No Do you presently have visiting nurse or other home services: No Alcohol intake: current Alcohol intake frequency: 3 or more drinks per day Alcohol type: wine Patient Tobacco Use Status: Former Tobacco user Smoked in Last 30 Days: No Use of substances other than those prescribed or required for medical reasons: No Advance Directives: No Advance Directives Information Provided: No service: Yes Current occupational status: retired Physical Exam Vital Signs: Vital Signs: Last Vital Signs Temp 98.0 F 05/16/24 04:21 Pulse 69 05/16/24 04:21 Resp 16 05/16/24 04:21 BP 115/63 05/16/24 04:21 Pulse Ox 93 05/16/24 04:21 O2 Del Method Room Air 05/16/24 04:21 BMI result Body Mass Index 24.4 Appearance: Alert. Oriented X3. No acute distress. Eyes: PERRLA, No Nystagmus ENT: Pharynx normal. Oral Mucosa moist Neck: Normal inspection. Neck supple. CVS: Normal heart rate and rhythm. Pulses normal. Respiratory: No respiratory distress. Equal air entry bilateral, no wheezing/rales/rhonchi Abdomen: Soft and nontender. Bowel sounds are present, no mass palpable, no CVA tenderness Skin: Skin warm and dry. Normal skin color. Normal skin turgor. Extremities: No lower extremity edema. No calf tenderness Neuro: Oriented X 3. No motor deficit. Medications Administered Discontinued Medications Generic Name Dose Route Start Last Admin Trade Name Freq PRN Reason Stop Dose Admin Cefuroxime Axetil 500 mg 05/16/24 02:45 05/16/24 03:21 Cefuroxime Axetil 500 Mg Tablet PO 05/16/24 02:46 500 mg ONCE ONE Administration Medical Decision Making Medical Decision Making [facility] Narrative: Patient went urinary retention PVD more than 300 also has a UTI [place] catheter was placed advised to follow up with urologist will prescribe Ceftin Lab Data [facility] Lab Attestation statement: I reviewed the patient's lab results. Labs: Lab Results 05/16/24 Range/Units 00:37 Urine Color Dark Yellow Urine Appearance Hazy Urine pH 5.5 (5.0-9.0) Ur Specific [place] 1.025 (1.005-1.025) Urine Protein 300 (3+) H (Neg-Trace) mg/dL Urine Glucose (UA) Negative (Negative) mg/dL Urine Ketones Trace (Negative) mg/dL Urine Blood Moderate (2+) H (Negative) Urine Nitrite Negative (Negative) Ur Leukocyte Esterase Moderate (2+) H (Negative) Urine RBC >20 H (0-2) /HPF Urine WBC >50 H (0-5) /HPF Ur Squamous Epith Cells 0-2 (0-2) /HPF Urine Bacteria 3+ (None Seen) Hyaline Casts 3-5 (0-2) /LPF Discharge Plan Discharge Clinical Impression: Urinary tract infection, Acute retention of urine Patient Disposition: Home, Self-Care Instructions: Urinary Tract Infection in Men (DC), [place]o Catheter Placement and Care (ED) Additional Instructions: Drink plenty of fluids Mor[place]o catheter care as advised Antibiotic as prescribed Follow up urologist in 1-2 weeks Prescriptions: New cefuroxime axetil 500 mg tablet 500 mg PO BID 7 Days Qty: 14 0RF No Action tamsulosin 0.4 mg capsule 0.4 mg PO BEDTIME 90 Days Qty: 90 1RF pravastatin 40 mg tablet 40 tab PO DAILY clonazepam 1 mg tablet 1 tab PO BID dicyclomine 20 mg tablet 1 tab PO TID lisinopril 2.5 mg tablet 1 tab PO DAILY diltiazem HCl 240 mg capsule,extended release 24hr 240 mg PO DAILY omeprazole 20 mg capsule,delayed release(DR/EC) 20 mg PO DAILY cetirizine 10 mg tablet 10 mg PO DAILY levocetirizine 5 mg tablet 5 mg PO DAILY bethanechol chloride 50 mg tablet 50 mg PO BID 90 Days Qty: 180 1RF Interventions: ED Discharge Assessment Last Done: 05/16/24 04:21 Discharge Date/Time: 05/16/24 04:26 Print Language: Yi
[2024-05-16] MEDS: cefuroxime axetiL 500 MG TABLET PO (03:21)
[2024-05-16 04:19] VITALS: BP 115/63; PULSE 69; RESP 15; TEMP 36.7; O2SAT 93
[2024-05-16 04:21] VITALS: BP 115/63; PULSE 69; RESP 16; TEMP 36.7; O2SAT 93
== END 2024-05-16 04:26 | disposition home or self-care (01) ==
PROVIDERS: Emergency Provider Internal Medicine; PCP Internal Medicine
DX: N39.0 Urinary tract infection, site not specified (principal); R33.9 Retention of urine, unspecified; I12.9 Hypertensive chronic kidney disease with stage 1 through stage 4 chronic kidney disease, or unspecified chronic kidney disease; N18.30 Chronic kidney disease, stage 3 unspecified; Z79.899 Other long term (current) drug therapy
CPT/HCPCS: 51798; 81001; 87086; 87088; 87186; 93005; 99283; 99285

== ENCOUNTER → 2024-05-16 00:23 | Outpatient (BNV) | payer MEDICARE, SELFPAY | PROVIDERS: Emergency Provider Internal Medicine; PCP Internal Medicine; Visit Provider Internal Medicine Cardiovascular Disease | DX: I45.2 Bifascicular block (principal) | CPT/HCPCS: 93010 ==

== ENCOUNTER → 2024-05-21 09:07 | Outpatient (BNVA) | payer MEDICARE, SELFPAY | PROVIDERS: PCP Internal Medicine; Visit Provider Urology | DX: N40.1 Benign prostatic hyperplasia with lower urinary tract symptoms (principal); N13.8 Other obstructive and reflux uropathy; R33.9 Retention of urine, unspecified | CPT/HCPCS: 51700; 51798 ==

== ENCOUNTER 2024-07-16 09:10 | Outpatient (AMB) | payer MEDICARE, SELFPAY ==
--- NOTE | 2024-07-16 09:14 | A.OFFVIS_ITS ---
Intake Visit Reasons: 6W Follow Up/CIC(Retention) Intake Note: Pt presents to the office today for a 6 week follow up/CIC(retention) PVR:208mL Allergies prednisone [PREDNISONE] Allergy (Intermediate, Verified 07/16/24 09:14) HEART PALPATATIONS, heart palpitations clindamycin [CLINDAMYCIN] Allergy (Unknown, Verified 07/16/24 09:14) C-DIFF seasonal allergies Allergy (Unknown, Uncoded 07/16/24 09:14) Sneezing HPI Comments Details: Bertin Davalos is a very pleasant male. He is a patient of Dr Quiros. He is seen for the following urologic conditions. - lower urinary tract symptoms - incomplete bladder emptying - recurrent UTI PVR today 200 cc Check PSA in six-month Continue with combination tamsulosin and bethanechol Neurogenic Bladder:? 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 PSA fell. Understands no sex with in 24 hours, no heavy exercise within 3 days ?12/20 PSA 6.1, 03/22 3.92 - falling. 07/24 5.4, 01/23 4.1, 01/24 4.9 ? They are here for ?further management for incomplete emptying neurogenic bladder.? Urinary retention initially found?occurred with C.diff episode in hospital early December 2015.? Cystoscopy results?prostate mild in size - minimal obstruction.? Current management?alpha blockers - tamsulosin - prior PVR 200 ? Therapeutic plan?Follow PVR.? PFSH Medical History Facial skin lesion Skin lesion Spinal stenosis H/O right bundle branch block Stage 3 chronic kidney disease Anxiety Acid reflux Dyslipidemia HTN (hypertension) Surgical History History of surgical removal of skin lesion (~01/30/24) H/O wisdom tooth extraction History of left nephrectomy Family History Sister Dementia Father Leukemia Mother Brain cancer Paternal Grandfather Cancer Paternal Grandmother Cancer Social History Household Members: Spouse Housing: House Are you a primary healthcare applications analyst to a significant other at home: No Do you presently have visiting nurse or other home services: No Alcohol intake: current Alcohol intake frequency: 3 or more drinks per day Alcohol type: wine Patient Tobacco Use Status: Former Tobacco user service: Yes Current occupational status: retired Review of Systems Const Denies chills and Denies fever(s) Card Reports no additional complaints and Denies syncope Resp Denies cough GI Denies abdominal pain and Denies heartburn Reports as per HPI and Denies change in libido Neuro Denies syncope Psych Denies change in libido Endo Denies change in libido Physical Exam Const General: cooperative, healthy appearing, comfortable and no acute distress Orientation/consciousness: patient oriented x3 HEENT Face and sinus: Yes normal facial exam Mouth: moist mucous membranes Neck Neck: Yes normal visual inspection, Yes full ROM and Yes trachea midline Chest Chest palpation & inspection: normal inspection of the chest Resp Effort & Inspection: normal respiratory effort, able to speak in complete sentences and no respiratory distress GI Inspection: Yes normal to inspection Back/Spine/Pelvis Cervical Spine: normal cervical lordosis Thoracic/Lumbar Spine: thoracic and lumbar spine normal to inspection Skin General skin exam: no rashes or lesions noted Neuro General: patient oriented x3, gait normal, tone normal and moves all extremities Extrem General: Yes normal to inspection and Yes capillary refill normal Office Procedures Post Void Residual Post Residual Void Post Void Residual (PVR): [id number] Void Residual by ultrasound Results AMB Urinalysis, Automated UA Leukoctes 0 Jose/uL Last Edit by Dominique Santoyo CMA on 07/16/24 09:25 UA Nitrite Negative Last Edit by oDminique Santoyo CMA on 07/16/24 09:25 UA Urobilinogen 0.2 mg/dL Last Edit by Dominique Santoyo CMA on 07/16/24 09:25 UA Protein 15 mg/dL Last Edit by Dominique Santoyo CMA on 07/16/24 09:25 UA pH 6.0 Last Edit by Dominique Santoyo CMA on 07/16/24 09:25 UA Blood 0 Chaz/uL Last Edit by Dominique Santoyo CMA on 07/16/24 09:25 UA Specific [place] 1.020 Last Edit by Dominique Santoyo CMA on 07/16/24 09:25 UA Ketone Negative Last Edit by Dominique Santoyo CMA on 07/16/24 09:25 UA Bilirubin 1 mg/dL Last Edit by Dominique Santoyo CMA on 07/16/24 09:25 UA Glucose 0 mg/dL Last Edit by Dominique Santoyo CMA on 07/16/24 09:25 Results Reviewed Results Reviewed: Laboratory Last Values Urine pH (Auto) 6.0 07/16/24 09:18 Specific [place] (Auto) 1.020 07/16/24 09:18 Urine Protein (Auto) 15 mg/dL 07/16/24 09:18 Glucose (UA)(Auto) 0 mg/dL 07/16/24 09:18 Urine Ketones (Auto) Negative 07/16/24 09:18 Urine Blood (Auto) 0 Chaz/uL 07/16/24 09:18 Urine Nitrite (Auto) Negative 07/16/24 09:18 Urine Bilirubin (Auto) 1 mg/dL 07/16/24 09:18 Urine Urobilinogen (Auto) 0.2 mg/dL 07/16/24 09:18 Leukocyte Esterase (Auto) 0 Jose/uL 07/16/24 09:18 Assessment & Plan Assessment & Plan (1) BPH w urinary obs/LUTS: Code(s): N40.1 - Benign prostatic hyperplasia with lower urinary tract symptoms; N13.8 - Other obstructive and reflux uropathy Category: Medical (2) Urinary retention with incomplete bladder emptying: Code(s): R33.9 - Retention of urine, unspecified Category: Medical (3) Elevated PSA: Code(s): R97.20 - Elevated prostate specific antigen [PSA] Category: Medical Plan Six-month follow-up PVR Orders: Orders AMB Urinalysis Automated Today Z13.9 - Encounter for screening, unspecified AMB Post Void Residual by ultrasound Today R33.9 - Retention of urine, unspecified PSA,Total (Free>4and<10) 6 Months R33.9 - Retention of urine, unspecified Medications: Refilled bethanechol chloride 50 mg PO BID 90 days 180 tabs 1RF N39.0 - Urinary tract infection, site not specified, R33.9 - Retention of urine, unspecified Patient Instructions: This note is constructed using voice recognition software. While every effort has been made to ensure accuracy flight operations inspector errors may have been included. Imaging studies, laboratory and physical exam results were discussed and reviewed in detail. No major barriers to patient understanding were identified. An opportunity to ask questions regarding the treatment plan was provided. All questions were answered. The patient expressed understanding and agreement with the above treatment plan. The patient is aware they should contact our office by phone for worsening of their current condition or the appearance of new urologic symptoms. Compliance is encouraged with any medications and followup testing that is ordered. It is a privilege to participate in the urologic care of your patient. If you have any questions or concerns regarding treatment for the above conditions, or other urologic issues, please do not hesitate to contact me. The office telephone contact is [phone]. Sincerely, Dr Nathan Hodges MD, [facility] - Urology Compassionate Specialist Care for the Genitourinary System Coding Level of Care Code Est Pt Level 3 (17025) Complex EM visit Add On G2211 Diagnoses BPH w urinary obs/LUTS N40.1; N13.8 Urinary retention with incomplete bladder emptying R33.9 Elevated PSA R97.20 CPT Codes Post Residual Void - PVR CPT Code: 98422-Xthy Void Residual by ultrasound ([id number])
--- OUTSIDE RECORDS SUMMARY | 2024-07-16 10:08 | XMS_ITS | Encounter Summary ---
Author Organization [facility] Address [phone] [place] [id number] Care Team Providers Care Grain Farmworker Name Role Phone Fernando Mendes MD Primary Care Provider [phone] Fernando Mendes MD Unavailable [phone] Reason for Visit * Reason Comments Medicare Annual Wellness Visit Subsequen t Encounter Details Date Type Department Care Team (Late st Contact Info) Description 07/14/2024 1:00 PM EST Office Visit [facility] [address] [place] [address] Fernando Mendes MD [address] [facility], [address] [place] [address] [email or web address] Medicare annual wellness visit, subsequent (Primary Dx); Benign prostatic hyperplasia with lower urinary tract symptoms, symptom details unspecified; RBBB; Other hyperlipidemia; Anxiety state; Spinal stenosis of lumbar region with neurogenic claudication; PVC (premature ventricular contraction) Social History Tobacco Use Types Packs/Day Years Used Date Smoking Tobacco: Former Cigarettes 0.5 23 1 967 - 1990 Smokeless Tobacco: Never Alcohol Use Standard Drinks/Week Comments Yes 2 (1 standard drink = 0.6 oz pur e alcohol) 2-3 drinks per week Education Answer Date Recorded Are you interested in more education? Not on danis e 09/29/2022 Are you concerned about learning? Not on file 09/29/2022 No 09/29/2022 No 09/29/2022 Digital Access Answer Date Recorded No 10/30/2022 No 10/30/2022 Reliable internet access at home? Not on file 10/30/2022 Device with a working camera? Not on file Intimate Partner Violence Answer Date R ecorded Denied Basic Needs Not on file 07/08/2024 In the past 12 months have y ou been in a relationship with a person who hurts, threatens, or tries to control you? No 07/08/2024 Worried food would run out Not on file 07/08 In the past 12 months have y ou been in a relationship with a person who hurts, threatens, or tries to control you? No 07/08/2024 Sex and Gender Information Value Date Recorded Sex Assigned at Male 07/13/2020 1:02 PM EST Gender Identity Male 07/13/2020 1:02 PM EST Sexual Orientation Straight 07/13/2020 1: 02 PM EST documented as of this encounter Last Filed Vital Signs Vital Sign Reading Time Taken Comments Blood Pressure 140/64 07/14/2024 12:59 PM EST Pulse 107 07/14/2024 12:59 PM EST Temperature 36.2 ??C (97.2 ??F) 07/14/2024 1 2:59 PM EST Respiratory Rate - - Oxygen Saturation 97% 07/14/2024 12: 59 PM EST Inhaled Oxygen Concentration - - Weight 78.4 kg (172 lb 12.8 oz) 025 12:59 PM EST Height 180.3 cm (5' 10.98 ) 07/14/2024 12:59 PM EST Body Mass Index 24.11 07/14/2024 12:59 PM EST documented in this encounter Progress Notes * Fernando Mendes MD - 07/14/2024 1:00 PM EST Images from the original note were not included. Reason for Visit: The patient presents today for their Annual Wellness Visit. 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 Last visit in February for left upper quadrant pain. X-ray unremarkable, ultrasound ordered but not done. 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 Hyperlipidemia on statin, hypertension, allergies, RBBB, lumbar spinal stenosis, CKD, elevated PSA followed by Dr. Escalona at [place] Last year he discussed weaning his clonazepam to 1/2 mg twice a day. He states he only uses 1 dose of 1 mg some days and uses the other for insomnia. However he has had refills of 60 tablets monthly since then. Bertin Davalos, is a 74 y.o. male reports - He went to [facility] in May with urinary obstruction [now resolved] Had an indwelling acosta for a week. Still on bethanicol. - The ECG there was abnormal, RBBB and posterior fascicular block. We reviewed that these are not new findings, seen at least as far back at 2021. - re anxiety, he never tried to wean dt life stress, the election, etc Walking more, has a new dog. Not exercising in the winter. Review of patient's current problem list and medications completed. Current Outpatient Medications Ordered in [facility] Medication Sig azelastine (ASTELIN) 137 mcg (0.1 %) nasal spray 1 spray by Nasal route 2 (two) times a day. Use ineach nostril as directed bethanechol (URECHOLINE) 50 MG tablet cetirizine (ZYRTEC) 10 MG tablet Take 1 tablet (10 mg total) by mouth daily. clonazePAM (KLONOPIN) 1 MG tablet Take 1 tablet (1 mg total) by mouth 2 (two) times a day as neededfor anxiety. dicyclomine (BENTYL) 20 mg tablet Take 1 tablet (20 mg total) by mouth 3 (three) times a day. dilTIAZem (CARDIZEM CD) 240 MG 24 hr capsule TAKE 1 CAPSULE DAILY HYDROcodone-acetaminophen (NORCO 10-325) 10-325 mg per tablet lidocaine (LIDODERM) 5 % PLACE 1 PATCH ONTO THE SKIN DAILY. REMOVE & DISCARD PATCH WITHIN 12 HOURS OR DIRECTED BY lisinopril (PRINIVIL,ZESTRIL) 2.5 MG tablet TAKE 1 TABLET DAILY omeprazole (PRILOSEC) 20 MG capsule TAKE 1 CAPSULE DAILY pravastatin (PRAVACHOL) 40 MG tablet Take 1 tablet (40 mg total) by mouth daily. tamsulosin (FLOMAX) 0.4 mg Cap TAKE 1 CAPSULE DAILY Past Medical History: Diagnosis Date Anxiety Arthritis BPH (benign prostatic hyperplasia) Chronic kidney disease (CKD) Clostridium difficile colitis 2015 after oral clindamycin Gastroesophageal reflux disease Hiatal hernia Hypercholesterolemia Hypertensive disorder Irritable bowel syndrome Lumbar stenosis PVC (premature ventricular contraction) sees PCP only Pyloric stenosis RBBB Seasonal allergies Solitary kidney saw Dr Lantigua once Spinal stenosis of lumbar region Wears reading eyeglasses Social History reviewed: Living situation: Spouse/significant other Services: none Social History Socioeconomic History Marital status: /Civil Union Spouse name: Not on file Number of children: Not on file Years of education: Not on file Highest education level: Not on file Occupational History Not on file Tobacco Use Smoking status: Former Current packs/day: 0.00 Average packs/day: 0.5 packs/day for 23.0 years (11.5 ttl pk-yrs) Types: Cigarettes Start date: 1966 Quit date: 1989 Years since quittin.1 Smokeless tobacco: Never Vaping Use Vaping status: never used Substance and Sexual Activity Alcohol use: Yes Alcohol/week: 2.0 - 3.0 standard drinks of alcohol Types: 2 - 3 Glasses of wine per week Comment: 2-3 drinks per week Drug use: Never Sexual activity: Not Currently Partners: Female Other Topics Concern Not on file Social History Narrative 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 Advance Care/End of Life Planning Discussed: Yes Medicare HRA reviewed: Patient presented with full Medicare Health Risk Assessment; declined questions are not displayed 07/08/2024 11:37 AM Medicare HRA Who is completing this form? Self/Patient With regards to my weight: My weight has been stable My appetite is: Good Select the actions you may need help with: None of the above Please select items in the below list you need but DO NOT currently have: None of the above Do you or family members have any concerns about your memory? No Do you have any health problems that require you to stay home? No In general, would you say your health is: Good During the past week, how many days did you do at least moderate physical activity? For example: walking, yoga, rhonda chi, and stretching classes. 2 Do you fasten your seat belt when you are in a car? Yes Who are you currently living with? Spouse/significant other Patient is not taking any prescription opioid medication(s). Depression Screenin07/10/2024 1:14 PM Depression Screening PHQ-2 Score 1 PHQ 2/9 Attestation Five or more minutes of combined provider, clinical staff, and patient time were spent administering the PHQ2/9 screening tool. Time included explaining the reason for annual screening, time for patient to complete questionnaire, calculating score, interpreting results, discussing results and implications with patient, and answering any patient questions. The patient was advised to contact our office with additional questions or with any changes in lifecircumstances that may increase risk for depression, and that this office can assist with interventions. Please refer to the PHQ9 screening tool for the patient's answers and score. Alcohol Screenin07/08/2024 Alcohol Screening Audit-C Score 3 AUDIT-C Attestation Five or more minutes of combined provider, clinical staff, and patient time were spent administering the AUDIT-C screening tool. Time included explaining the reason for annual screening, time for patient to complete questionnaire, calculating score, interpreting results, discussing results and implications with patient, and answering any patient questions. The patient was advised to contact our office with additional questions or with any changes in lifecircumstances that may increase the risk of alcohol misuse, and that this office can assist with interventions. Please refer to the AUDIT-C screening tool for the patient's answers and score. Cognition: Concerns about memory: No Hearing: Hearing ROS: negative STRIDE Falls Risk: 07/08/2024 11:37 AM Falls Risk Have you fallen and hurt yourself in the past year? Y Have you fallen 2 or more times in the past year? N Are you afraid that you might fall because of balance or walking problems? N 5-10 year preventative screening recommendations discussed. Health Maintenance Topic Date Due HEPATITIS B SCREENING Never done CREATININE LEVEL 07/04/2024 POTASSIUM LEVEL 07/04/2024 BLOOD PRESSURE 08/18/2024 DEPRESSION SCREENING 07/10/2025 LIPID PANEL 07/04/2028 Adult Td,Tdap Booster 01/24/2032 COVID-19 VACCINE Completed RSV VACCINE Completed HEPATITIS C SCREENING Completed SMOKING STATUS SCREENING (Once After 26 Yrs) Completed PNEUMOCOCCAL VACCINES (50+ years) Completed INFLUENZA VACCINE Completed ZOSTER VACCINES Completed HIB VACCINES Aged Out HEPATITIS B VACCINES Aged Out HEPATITIS A VACCINES Aged Out MENINGOCOCCAL VACCINES (ACWY) Aged Out Immunization History Administered Date(s) Administered COVID-19 (Pre-03/26) Moderna Vaccine, Bivalent 6mo+ 04/05/2022 COVID-19 (Pre-03/26) Pfizer Vaccine, mRNA, PF 08/07/2020, 08/28/2020, 01/22/2021 COVID-19 (Pre-03/26) Pfizer Vaccine, mRNA, misti-sucrose, PF 08/16/2021 COVID-19 Moderna Spikevax Vaccine 12+ 09/17/2023 COVID-19 Pfizer Comirnaty Vaccine 12+ 03/09/2023, 02/17/2024 Influenza High-Dose Quadrivalent Preservative Free IM 03/03/2021, 03/09/2023 Influenza Quadrivalent Adjuvanted Preservative Free IM 03/17/2022 Influenza Trivalent MDCK Preservative Free IM 02/17/2024 Pneumococcal conjugate PCV20 06/12/2022 Pneumococcal polysaccharide PPSV23 03/03/2021 RSV Vaccine (monovalent, adjuvanted) 02/16/2023 Td (adult) 5 Lf Tetanus Toxoid, PF, Adsorbed 12/02/2021 Tdap 01/23/2022 Zoster recombinant 11/20/2017, 02/01/2018 Review and update of patient care team completed: Patient Care Team: Fernando Mendes MD as PCP - General (Internal Medicine) Fernando Mendes MD as Insurance Assigned Provider Additional Documentation: Problem List Items Addressed This Visit Cardiovascular and Mediastinum RBBB PVC (premature ventricular contraction) Stable on cardizem Endocrine Other hyperlipidemia Relevant Orders Lipid panel Neuro and EENT Lumbar stenosis Get back to exerrcise, core etc. [facility]. Genitourinary BPH (benign prostatic hyperplasia) Needed a acosta briefly May 2024 Behavioral and Developmental Anxiety state Had a long discussion today around starting to wean klonopin. Take 1/2 mg daytime, 1mg at HS for now. Other Visit Diagnoses Medicare annual wellness visit, subsequent - Primary Relevant Orders Basic metabolic panel CBC Hemoglobin A1c LFTs (hepatic panel) Lipid panel Vitamin B12 TSH with reflex Review of Systems Body mass index is 24.11 kg/m??. Physical Exam BP Readings from Last 3 Encounters: 07/14/24 (!) 140/64 03/10/24 96/59 02/19/24 100/64 Weights (Last 3) 07/14/2024 1259 Weight: 78.4 kg (172 lb 12.8 oz) Assessment & Plan Medicare annual wellness visit, subsequent Orders: Basic metabolic panel; Future CBC; Future Hemoglobin A1c; Future LFTs (hepatic panel); Future Lipid panel; Future Vitamin B12; Future TSH with reflex; Future Benign prostatic hyperplasia with lower urinary tract symptoms, symptom details unspecified Needed a acosta briefly May 2024 RBBB Other hyperlipidemia Orders: Lipid panel; Future Anxiety state Had a long discussion today around starting to wean klonopin. Take 1/2 mg daytime, 1mg at HS for now. Spinal stenosis of lumbar region with neurogenic claudication Get back to exerrcise, core etc. [facility], [facility]. PVC (premature ventricular contraction) Stable on cardizem Summary Information gathered at this wellness visit has been reviewed and updated. Patient was given personalized health advice and appropriate referrals, to health education or preventive counseling services or programs aimed at reducing identified risk factors and improving self-management and wellness, including weight loss, physical activity, smoking cessation, fall prevention, and nutrition. AVS given to patient Fernando Mendes MD Answers submitted by the patient for this visit: From Your Doctor: Pre-visit Questions (Submitted on 07/08/2024) Erectile dysfunction: No documented in this encounter Miscellaneous Notes * Assessment & Plan Note - Fernando Mendes MD - 07/14/2024 1:00 PM ESTAssociated Problem(s): BPH (benign prostatic hyperplasia) Needed a acosta briefly May 2024 * Assessment & Plan Note - Fernando Mendes MD - 07/14/2024 1:00 PM ESTAssociated Problem(s): Anxiety state Had a long discussion today around starting to wean klonopin. Take 1/2 mg daytime, 1mg at HS for now. * Assessment & Plan Note - Fernando Mendes MD - 07/14/2024 1:00 PM ESTAssociated Problem(s): Lumbar stenosis Get back to exerrcise, core etc. [facility], [facility]. * Assessment & Plan Note - Fernando Mendes MD - 07/14/2024 1:00 PM EST Associated Problem(s): PVC (premature ventricular contraction) Stable on cardizem * Assessment & Plan Note - Fernando Mendes MD - 07/14/2024 1:00 PM ESTAssociated Problem(s): RBBB * Assessment & Plan Note - Fernando Mendes MD - 07/14/2024 1:00 PM ESTAssociated Problem(s): Other hyperlipidemia Orders: Lipid panel; Future documented in this encounter Plan of Treatment Upcoming Encounters Date Type Department Care Team (Late st Contact Info) Description 07/16/2025 1:00 PM EST Office Visit [facility] [address] [place] [id number] Fernando Mendes MD [address] [place] [address], [address] [place] [address] [email or web address] Scheduled Orders Name Type Priority Associated Diagnoses Orde r Schedule Basic metabolic panel Lab Routine Medicare annual wellness visit, subsequent Expected: 07/14/2024, Expires: 07/14/2025 CBC Lab Routine Medicare annual wellness visit, subsequent Expected: 07/14/2024, Expires: 07/14/2025 Hemoglobin A1c Lab Routine Medicare annual wellness visit, subsequent Expected: 07/14/2024, Expires: 07/14/2025 LFTs (hepatic panel) Lab Routine Medicare annual wellness visit, subsequent Expected: 07/14/2024, Expires: 07/14/2025 Lipid panel Lab Routine Medicare annual wellness visit, subsequent Other hyperlipidemia Expected: 07/14/2024, Expires: 07/14/2025 Vitamin B12 Lab Routine Medicare annual wellness visit, subsequent Expected: 07/14/2024, Expires: 07/14/2025 TSH with reflex Lab Routine Medicare annual wellness visit, subsequent Expected: 07/14/2024, Expires: 07/14/2025 documented as of this encounter Visit Diagnoses Diagnosis Medicare annual wellness visit, subsequent- Primary Benign prostatic hyperplasia with lower urinary tract symptoms, symptom details unspecified RBBB Other hyperlipidemia Anxiety state Anxiety state, unspecified Spinal stenosis of lumbar region with neurogenic claudication PVC (premature ventricular contraction) Other premature beats documented in this encounter Additional Health Concerns Assessment Noted Time PHQ-2 Depression Total Score: 1 07/10/19 25 1:14 PM EST documented as of this encounter Care Teams Grain Farmworker Relationship Specialty Start Date End Date Fernando Mendes MD [address] [facility] [place] [address] [email or web address] PCP - General Internal Medicine 07/16/20 Fernando Mendes MD [address] [place] [address], [address] [place] [address] Insurance Assigned Provider 09/08/23 documented as of this encounter Additional Source Comments The information contained in this document represents components of the legal health record. It is not the complete legal health record.[facility]
--- OUTSIDE RECORDS SUMMARY | 2024-07-16 10:08 | XMS_ITS | Encounter Summary ---
Author Organization [facility] Address [phone] [place] [address] Care Team Providers Care Hydraulic Plumber Helper Name Role Phone Fernando Mendes MD Primary Care Provider [phone] Fernando Mendes MD Unavailable [phone] Encounter Details Date Type Department Care Team (Late st Contact Info) Description 01/31/2021 Procedure Pass [facility] Endoscopy Admitting Dept Virtual Department [address] [place] [address] Social History Tobacco Use Types Packs/Day Years Used Date Smoking Tobacco: Former Cigarettes 0.5 23 1 967 - 1990 Smokeless Tobacco: Never Alcohol Use Standard Drinks/Week Comments Yes 0 (1 standard drink = 0.6 oz pur e alcohol) glass of wine with dinner Sex and Gender Information Value Date Recorded Sex Assigned at Male 07/13/2020 1:02 PM EST Gender Identity Male 07/13/2020 1:02 PM EST Sexual Orientation Straight 07/13/2020 1: 02 PM EST documented as of this encounter Plan of Treatment Upcoming Encounters Date Type Department Care Team (Late st Contact Info) Description 07/16/2025 1:00 PM EST Office [facility] Medicine [address] [place] [address] Fernando Mendes MD [address] [place] [address], [address] [place] [address] documented as of this encounter Visit Diagnoses Not on filedocumented in this encounter Additional Health Concerns Infection Onset Date Last Indicated Resolved Time CoV-Presumed 01/29/2022 01/29/2022 02/19/2022 1:23 AM EDT COVID-19 10/12/2023 10/12/2023 11/02/2023 1:21 AM EDT Assessment Noted Time PHQ-2 Depression Total Score: 1 07/12/19 21 5:10 PM EST documented as of this encounter Care Teams Hydraulic Plumber Helper Relationship Specialty Start Date End Date Fernando Mendes MD [address] [place] [address], [address] [address] [email or web address] PCP - General Internal Medicine 07/16/20 Fernando Mendes MD [address] [place] [address], [address] [address] Insurance Assigned Provider 09/08/23 documented as of this encounter Additional Source Comments The information contained in this document represents components of the legal health record. It is not the complete legal health record.[facility]
--- OUTSIDE RECORDS SUMMARY | 2024-07-16 10:08 | XMS_ITS | Encounter Summary ---
Author Organization [facility] Address [phone] [place] [address] Care Team Providers Care Clothes Ironer Name Role Phone Fernando Mendes MD Primary Care Provider [phone] Fernando Mendes MD Unavailable [phone] Reason for Visit * Reason Comments Medication Refill Encounter Details Date Type Department Care Team (Late st Contact Info) Description 06/27/2024 Refill [facility] Medicine [address] [place] [address] [place] [address] Fernando Mendes MD [address] [facility], [address] [place] [address] [email or web address] Medication Refill Social History Tobacco Use Types Packs/Day Years [...] ecorded Denied Basic Needs Not on file 03/05/2024 In the past 12 months have y ou been in a relationship with a person who hurts, threatens, or tries to control you? No 03/05/2024 Worried food would run out Not on file 03/05 In the past 12 months have y ou been in a relationship with a person who hurts, threatens, or tries to control you? No 03/05/2024 Sex and Gender Information Value Date Recorded Sex Assigned at Male 07/13/2020 1:02 PM EST Gender Identity Male 07/13/2020 1:02 PM EST Sexual Orientation Straight 07/13/2020 1: 02 PM EST documented as of this encounter Progress Notes * José Miguel Bales - 06/27/2024 4:17 PM EST Rx Care Gap Status - Instructions for Clinical Staff (prescriber discretion applies): n/a Visit Info Last visit: 02/19/2024 Fernando Mendes MD - Family Medicine [facility] > Requested f/u: Not specified Upcoming visit: 07/14/2024 Fernando [facility]S TAKEN BY José Miguel Bales - Refill protocol passed: no action needed. AV Temi Blockers Rx Protocol (on HTN Registry) Criteria met; renew for up to 12 months.- diltiazem HCl Visit in the past 14 months: Yes Clinical criteria: - BP within last 6 months: 96/59 on 03/10/2024 - Last HR: 59 on 03/10/2024 documented in this encounter Plan of Treatment Upcoming Encounters Date Type Department Care Team (Late st Contact Info) Description 07/16/2025 1:00 PM EST Office Visit [facility] [address] [place] [id number] Fernando Mendes MD [address] [place] [address], [address] [place] [address] documented as of this encounter Visit Diagnoses Diagnosis Essential hypertension Unspecified essential hypertension documented in this encounter Additional Health Concerns Assessment Noted Time PHQ-2 Depression Total Score: 1 05/26/20 23 2:31 PM EST documented as of this encounter Care Teams Clothes Ironer Relationship Specialty Start Date End Date Fernando Mendes MD [address] [place] [address], [address] [place] [address] PCP - General Internal Medicine 07/16/20 Fernando Mendes MD [address] [place] [address], [address] [place] [address] Insurance Assigned Provider 09/08/23 documented as of this encounter Additional Source Comments The information contained in this document represents components of the legal health record. It is not the complete legal health record.[facility]
--- OUTSIDE RECORDS SUMMARY | 2024-07-16 10:09 | XMS_ITS | Encounter Summary ---
Author Organization [facility] Address [phone] [place] [address] Care Team Providers Care Infectious Disease Technician Name Role Phone Fernando Mendes MD Primary Care Provider [phone] Fernando Mendes MD Unavailable [phone] Encounter Details Date Type Department Care Team (Late st Contact Info) Description 08/23/2021 Procedure Pass Non-Invasive Cardiology [address] [place] [address] [place] [address] Social History Tobacco Use Types Packs/Day Years [...] Description 07/16/2025 1:00 PM EST Office Visit [facility] [address] [place] [address] Fernando Mendes MD [address] [place] [address], [address] [place] [address] [email or web address] documented as of this encounter Visit Diagnoses Not on filedocumented in this encounter Additional Health Concerns Infection Onset Date Last Indicated Resolved Time CoV-Presumed 01/29/2022 01/29/2022 02/19/2022 1:23 AM EDT COVID-19 10/12/2023 10/12/2023 11/02/2023 1:21 AM EDT Assessment Noted Time PHQ-2 Depression Total Score: 0 06/04/19 12:05 PM EST documented as of this encounter Care Teams Infectious Disease Technician Relationship Specialty Start Date End Date Fernando Mendes MD [address] [place] [address] PCP - General Internal Medicine 07/16/20 Fernando Mendes MD [address] [place] [address], [address] [address] Insurance Assigned Provider 09/08/23 documented as of this encounter Additional Source Comments The information contained in this document represents components of the legal health record. It is not the complete legal health record.[facility]
--- OUTSIDE RECORDS SUMMARY | 2024-07-16 10:09 | XMS_ITS | Encounter Summary ---
Author Organization [facility] Address [phone] [facility] [place] [place] [address] Care Team Providers Care Legal Secretary Name Role Phone Fernando Mendes MD Primary Care Provider [phone] Fernando Mendes MD Unavailable [phone] Encounter Details Date Type Department Care Team (Late st Contact Info) Description 03/10/2024 Procedure Pass [facility] Endoscopy Admitting Dept Virtual Department [address] [place] [address] Social History Tobacco Use Types Packs/Day Years [...] Description 07/16/2025 1:00 PM EST Office Visit [facility] [address] [place] [address] Fernando Mendes MD [address] [facility], [address] [place] [address] documented as of this encounter Visit Diagnoses Not on filedocumented in this encounter Additional Health Concerns Assessment Noted Time PHQ-2 Depression Total Score: 1 05/26/20 23 2:31 PM EST documented as of this encounter Care Teams Legal Secretary Relationship Specialty Start Date End Date Fernando Mendes MD [address] [place] [address], [address] [place] [address] PCP - General Internal Medicine 07/16/20 Fernando Mendes MD [address] [place] [address], [address] [place] [address] Insurance Assigned Provider 09/08/23 documented as of this encounter Additional Source Comments The information contained in this document represents components of the legal health record. It is not the complete legal health record.[facility]
--- OUTSIDE RECORDS SUMMARY | 2024-07-16 10:09 | XMS_ITS | Clinical Summary ---
Author Organization [facility] Address [phone] [facility] [place] [address] Care Team Providers Care Property Appraiser Name Role Phone Fernando Mendes MD Primary Care Provider [phone] Fernando Mendes MD Unavailable [phone] Allergies Active Allergy Reactions Criticality Noted Date Comments Clindamycin Hcl 07/16/2020 C-DIFF Molnupiravir Rash Low 06/12/2022 Other Rash Low 02/06/2022 Molnupiravir Prednisone Palpitations Low 07/16/2020 Medications Medication Sig Dispensed Refills Start Date End Date Status tamsulosin (FLOMAX) 0.4 mg CapIndications:Othe r hydronephrosis,Mikel gn prostatic hyperplasia without lower urinary tract symptoms TAKE 1 CAPSULE DAILY 90 capsule 3 2 Active cetirizine (ZYRTEC) 10 MG tablet Take 1 tablet (10 mg total) by mouth daily. 90 tablet 1 3 Active bethanechol (URECHOLINE) 50 MG tablet 3 Active azelastine (ASTELIN) 137 mcg (0.1 %) nasal sprayIndications:Si nus congestion 1 spray by Nasal route 2 (two) times a day. Use in each nostril as directed 30 mL 12 4 Active lidocaine (LIDODERM) 5 %Indications:Rib pain on left side PLACE 1 PATCH ONTO THE SKIN DAILY. REMOVE & DISCARD PATCH WITHIN 12 HOURS OR DIRECTED BY MD 30 patch 1 4 Active pravastatin (PRAVACHOL) 40 MG tabletIndications:O ther hyperlipidemia Take 1 tablet (40 mg total) by mouth daily. 90 tablet 3 4 Active HYDROcodone-acetami nophen (NORCO 10-325) 10-325 mg per tablet 4 Active dicyclomine (BENTYL) 20 mg tablet Take 1 tablet (20 mg total) by mouth 3 (three) times a day. 270 tablet 3 4 Active omeprazole (PRILOSEC) 20 MG capsuleIndications: Hiatal hernia with GERD TAKE 1 CAPSULE DAILY 90 capsule 3 5 Active lisinopril (PRINIVIL,ZESTRIL) 2.5 MG tabletIndications:E ssential hypertension TAKE 1 TABLET DAILY 90 tablet 5 Active dilTIAZem (CARDIZEM CD) 240 MG 24 hr capsuleIndications: Essential hypertension TAKE 1 CAPSULE DAILY 90 capsule 3 5 Active clonazePAM (KLONOPIN) 1 MG tabletIndications:A nxiety state Take 1 tablet (1 mg total) by mouth 2 (two) times a day as needed for anxiety. 60 tablet 5 Active dilTIAZem (CARDIZEM CD) 240 MG 24 hr capsuleIndications: Essential hypertension TAKE 1 CAPSULE DAILY 90 capsule 3 4 06/27/19 25 Discontinued clonazePAM (KLONOPIN) 1 MG tabletIndications:A nxiety state Take 1 tablet (1 mg total) by mouth 2 (two) times a day as needed for anxiety. 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 Recall 2023. Rib pain on left side 06/28/2023 Overview (07/10/2023): Xray neg. Fall Jun 2023 walking his dog Assessment & Plan (06/28/2023 3:32 PM EST): Given traumatic injury and deformity visualized on examination will get xray to further identify possible fractures. Pt educated on typical timeline for healing. Advised to continue use of ice, tylenol, lidocaine. Call with worsening pain or failure to improve. Pt verbalized understanding, agreeable to plan. Primary osteoarthritis of both hands 06/12/2022 Other hydronephrosis 01/18/2021 Overview (08/23/2021): Solitary R kidney January 2021: Start flomax for his known BPH, recheck u/s in 6-8 wks August 2021: Saw Dr. Escalona in [place], thought to perhaps have neurogenic bladder. Follow-up in 6 months, I reinforced the idea of scheduled voiding Microcytosis 10/14/2020 Overview (10/14/2020): Noted in Jul 2020, first CBC. He has an appt with a gis analyst developer Dr Andino in [place] in mid-October for another issue. He was told previously that he has polycythemia Polycythemia 10/14/2020 Overview (01/18/2021): Has had therapeutic phlebotomy at [facility], will see Dr Andino. January 2021: he was told his genetic studies ruled out PV. Other hyperlipidemia 07/16/2020 Overview (07/16/2020): Reportedly solely low HDL. Assessment & Plan (07/14/2024 1:43 PM EST): Orders: Lipid panel; Future Essential hypertension 07/16/2020 Anxiety state 07/16/2020 Overview (07/16/2020): Has been on clonazepam for many years up to twice daily. Usually only takes it once a day. At his first visit with me we discussed the possibility of weaning it, but he would like to wait until the pandemic is winding down and he has been vaccinated. Assessment & Plan (07/14/2024 1:43 PM EST): Had a long discussion today around starting to wean klonopin. Take 1/2 mg daytime, 1mg at HS for now. Assessment & Plan (07/10/2023 1:37 PM EST): He feels ready to try taking 1/2 mg bid, already sometimes only uses 1 dose some days, with the 2nd dose for insomnia. History of nephrectomy, left 07/16/2020 Overview (07/16/2020): Dt chronic hydronephrosis Stage 3a chronic kidney disease 07/16/2020 Overview (07/16/2020): Has a single kidney, L nephrectomy dt hydro. - has some hx of CKD, has been followed by Dr Lantigua, but reportedly improved. RBBB 07/16/2020 Overview (07/14/2024): And LAFB Assessment & Plan (07/14/2024 1:43 PM EST): Hiatal hernia with GERD 07/16/2020 Overview (03/22/2021): No hx EGD. Given history of hiatal hernia, I recommended he have an endoscopy this year to rule out Cummings's esophagus. If there is no Cummings's esophagus he should be safe to transition off of omeprazole if he tolerates an H2 lexa. October 2020: Will schedule EGD, but is quite anxious about it. Mar 2021: Cont pepcid bid, small meals, no late meals. Assessment & Plan (06/12/2022 1:23 PM EST): Did not do well with pepcid. Relies on omeprazole Lumbar stenosis 07/16/2020 Overview (07/16/2020): By his report, has had MRI at [facility], saw N.Surg there. Has had facet injection with Dr Shirley for ?sacroileitis Assessment & Plan (07/14/2024 1:43 PM EST): Get back to exerrcise, core etc. [facility], senior center. Assessment & Plan (07/10/2023 1:16 PM EST): Improved recently, I reminded him to capitalize by doing more core exercises. Elevated PSA 07/16/2020 Overview (06/12/2022): PSA 6.1 in 2019, reduced to 3.9 after tx for UTI/prostatits Dr Escalona follows Sacroiliitis, not elsewhere classified 7 BPH (benign prostatic hyperplasia) Overview (07/10/2023): Better on flomax, bethanicol added by Dr Escalona in 2022 Assessment & Plan (07/14/2024 1:43 PM EST): Needed a acosta briefly May 2024 Solitary kidney Overview (03/04/2021): saw Dr Lantigua once IMO 03/04/2021 PVC (premature ventricular contraction) Overview (07/11/2021): Had Holter 2019, 1226 PVC and 544 PAC. Assessment & Plan (07/14/2024 1:43 PM EST): Stable on cardizem Encounters Date Type Department Care Team Description 07/14/2024 1:00 PM EST Office Visit [address] [place] [address] Fernando Mendes MD Medicare annual wellness visit, subsequent (Primary Dx); Benign prostatic hyperplasia with lower urinary tract symptoms, symptom details unspecified; RBBB; Other hyperlipidemia; Anxiety state; Spinal stenosis of lumbar region with neurogenic claudication; PVC (premature ventricular contraction) 06/27/[address] [place] [address] Fernando Mendes MD Medication Refill 06/13/[address] [place] [address] Fernando Mendes MD Medication Refill 04/25/2024 Orders Only [address] [place] [address] Provider, MD Jourdan from Last 3 Months Immunizations Name Administration Dates Next Due Influenza High-Dose Quadrivalent Preservative Fr ee IM 03/09/2023,03/03/2021 Influenza Quadrivalent Adjuvanted Preservative F ree IM 03/17/2022 Influenza Trivalent MDCK Preservative Free IM Pneumococcal conjugate PCV20 06/12/2022 Pneumococcal polysaccharide PPSV23 03/03/2021 RSV Vaccine (monovalent, adjuvanted) 02/16/2023 Td (adult) 5 Lf Tetanus Toxoid, PF, Adsorbed 06/2021 Tdap 01/23/2022 Zoster recombinant 02/01/2018,11/20/2017 Family History Medical History Relation Comments Cancer Father 2 Cancer Mother 2 Relation Status Comments Father 1 Father 2 Mother 1 Mother 2 Social History Tobacco Use Types Packs/Day Years Used Date Smoking Tobacco: Former Cigarettes 0.5 23 1 967 - 1990 Smokeless Tobacco: Never Tobacco Cessation:Counseling Given: Not Answered Alcohol Use Standard Drinks/Week Comments Yes 2 [...] Orientation Straight 07/13/2020 1: 02 PM EST Last Filed Vital Signs Vital Sign Reading Time Taken Comments Blood Pressure 140/64 07/14/2024 12:59 PM EST Pulse 107 07/14/2024 12:59 PM EST Temperature 36.2 ??C (97.2 ??F) 07/14/2024 1 2:59 PM EST Respiratory Rate 15 03/10/2024 8:28 AM EDT Oxygen Saturation 97% 07/14/2024 12: 59 PM EST Inhaled Oxygen Concentration - - Weight 78.4 kg (172 lb 12.8 oz) 025 12:59 PM EST Height 180.3 cm (5' 10.98 ) 07/14/2024 12:59 PM EST Body Mass Index 24.11 07/14/2024 12:59 PM EST Plan of Treatment Upcoming Encounters Date Type Department Care Team (Late st Contact Info) Description 07/16/2025 1:00 PM EST Office Visit [address] [place] [address] Fernando Mendes MD [address] [place] [address], [address] [place] [address] [email or web address] Health Maintenance Due Date Last Done Comments HEPATITIS B SCREENING 01/13/1968 CREATININE LEVEL 07/04/2024 07/04/2023, , 06/14/2021, Additional history exists POTASSIUM LEVEL 07/04/2024 07/04/2023, 06/04, 06/14/2021, Additional history exists BLOOD PRESSURE 01/11/2025 07/14/2024 DEPRESSION SCREENING 07/10/2025 07/10/2024 LIPID PANEL 07/04/2028 07/04/2023, 06/04, 07/29/2020 Adult Td,Tdap Booster 01/24/2032 01/23/2022, 022 ZOSTER VACCINES Completed 02/01/2018, 11/20/2017 PNEUMOCOCCAL VACCINES (50+ years) Completed 06/12/2022, 03/03/2021 HEPATITIS C SCREENING Completed 06/16/2022 RSV VACCINE Completed 02/16/2023 COVID-19 VACCINE Completed 02/17/2024, , 03/09/2023, Additional history exists INFLUENZA VACCINE Completed 02/17/2024, , 03/17/2022, Additional history exists SMOKING STATUS SCREENING (Once After 26 Yrs) Completed 07/14/2024 HEPATITIS A VACCINES Aged Out No long er eligible based on patient's age to complete this topic HEPATITIS B VACCINES Aged Out No long er eligible based on patient's age to complete this topic HIB VACCINES Aged Out No longer eligi ble based on patient's age to complete this topic MENINGOCOCCAL VACCINES (ACWY) Aged Out No longer eligible based on patient's age to complete this topic Medical Devices Not on file Procedures Procedure Name Priority Date/Time Associated Diagnosis Comments LIPID PANEL Routine 07/04/2023 9:46 AM EST Other hyperlipidemia BASIC METABOLIC PANEL Routine 07/04/2023 9:46 AM EST Essential hypertension HEPATITIS C ANTIBODY, QUALITATIVE Routine 06/16/2022 10:36 AM EST Need for hepatitis C screening test from Last 3 Months or Most Recently Relevant to Health Maintenance Results * (ABNORMAL) Lipid panel (07/04/2023 9:46 AM EST) HDL 44 mg/dL [facility] Comment: ? Interpretation <40 mg/dL: Low HDL cholesterol (major risk factor for CHD) Greater than or equal to 60 mg/dL: High HDL cholesterol ( negative risk factor for CHD) HDL - cholesterol is affected by a number of factors, e.g. smoking, excerise, hormones, sex and age. CHOLESTEROL 139 0 - 240 mg/dL [facility] TRIGLYCERIDES 86 30 - 160 mg/dL [facility] LDL 78 50 - 129 mg/dL [facility] Comment: LDL levels in terms of risk for coronary heart disease: <100 mg/dL: Optimal 100-129 mg/dL: Near or above optimal 130-159 mg/dL: Borderline high 160-189 mg/dL: High >190 mg/dL: Very High CARDIAC RISK RATIO 3.2(L) 3.4 - 5.0 [facility] Blood 07/04/2023 9:46 AM EST 07/04/2023 9:49 AM EST Fernando Mendes MD LAB BLOOD ORDERABLES Performing Organization Address City/[facility]/ZIP Co de Phone Number [address] [address] * (ABNORMAL) Basic metabolic panel (07/04/2023 9:46 AM EST) SODIUM 139 133 - 146 mmol/L [facility] CHLORIDE 103 96 - 108 mmol/L [facility] POTASSIUM 4.8 3.3 - 5.1 mmol/L [facility] CO2 29 21 - 35 mmol/L [facility] BUN 18 6 - 19 mg/dL [facility] CREATININE 1.40 0.5 - 1.5 mg/dL [facility] GLUCOSE 104(H) 70 - 99 mg/dL [facility] CALCIUM 9.5 8.4 - 10.3 mg/dL [facility] EGFR 52(L) >59 mL/min/1.7 3m2 [facility] Comment:Estimated glomerular filtration rate calculated using the CKD-EPI refit equation. ANION GAP 12 10 - 20 mmol/L [facility] Blood 07/04/2023 9:46 AM EST 07/04/2023 9:49 AM EST Fernando Mendes MD LAB BLOOD ORDERABLES Performing Organization Address City/[facility]/ZIP Co de Phone Number [address] [address] * Hepatitis C antibody, qualitative (06/16/2022 10:36 AM EST) HCV NON-REACTIV E NON-REACTI VE [facility] Blood 06/16/2022 10:3 6 AM EST 06/16/2022 10:40 AM EST Fernando Mendes MD LAB BLOOD ORDERABLES Performing Organization Address City/[facility]/ZIP Co de Phone Number [address] [address] from Last 3 Months or Most Recently Relevant to Health Maintenance Care Teams Property Appraiser Relationship Specialty Start Date End Date Fernando Mendes MD [address] [place], [place] [address] [address] [email or web address] PCP - General Internal Medicine 07/16/20 Fernando Mendes MD [address] [place] [address], [address] [place] [address] [email or web address] Insurance Assigned Provider 09/08/23 Additional Source Comments The information contained in this document represents components of the legal health record. It is not the complete legal health record.[facility]
== END 2024-07-16 09:39 | disposition home or self-care (01) ==
PROVIDERS: PCP Internal Medicine; Visit Provider Urology
DX: N40.1 Benign prostatic hyperplasia with lower urinary tract symptoms (principal); N13.8 Other obstructive and reflux uropathy; R33.9 Retention of urine, unspecified; R97.20 Elevated prostate specific antigen [PSA]; Z13.9 Encounter for screening, unspecified
CPT/HCPCS: 99213; G2211

== ENCOUNTER → 2024-07-16 09:10 | Outpatient (BNVA) | payer MEDICARE, SELFPAY | PROVIDERS: PCP Internal Medicine; Visit Provider Urology | DX: N40.1 Benign prostatic hyperplasia with lower urinary tract symptoms (principal); N13.8 Other obstructive and reflux uropathy; R33.9 Retention of urine, unspecified; R97.20 Elevated prostate specific antigen [PSA] | CPT/HCPCS: 51798; 81003; 99212 ==

== ENCOUNTER 2024-09-15 14:31 | Outpatient (REF) | payer MEDICARE, SELFPAY ==
[2024-09-15 16:07] LABS: Appearance Urine Turbid; Color Urine Yellow; Glucose Urine UA Negative (Negative); Leukocyte Esterase Urine Large (3+) (Negative); Nitrite Urine Negative (Negative); PH 5.5 (5.0-9.0); UMIC TRIGGER UA YES; Urine Blood Moderate (2+) (Negative); Urine Ketones Trace mg/dL (Negative); Urine Protein 100 (2+) mg/dL (Neg-Trace)
[2024-09-15 16:11] LABS: Bacteria Urine 4+ (None Seen); Hyaline Casts Urine 0-2 /LPF (0-2); Squamous Epithelial Cell Urine 0-2 /HPF (0-2); WBC Urine >50 /HPF (0-5)
== END 2024-09-15 14:32 | disposition home or self-care (01) ==
LOC: HO.HMGCLDS 14:31
PROVIDERS: PCP Internal Medicine; Visit Provider Urology
DX: R33.9 Retention of urine, unspecified (principal); N40.1 Benign prostatic hyperplasia with lower urinary tract symptoms; N13.8 Other obstructive and reflux uropathy
CPT/HCPCS: 81001; 87086; 87088; 87186

== ENCOUNTER → 2024-11-14 13:12 | Outpatient (BNVA) | payer MEDICARE, SELFPAY | PROVIDERS: PCP Internal Medicine; Visit Provider Urology | DX: Z13.89 Encounter for screening for other disorder (principal) ==

== ENCOUNTER 2025-01-08 08:49 | Outpatient (REF) | payer MEDICARE, SELFPAY ==
--- OUTSIDE RECORDS SUMMARY | 2025-01-08 09:10 | XMS_ITS | Encounter Summary ---
Author Organization [facility] Address [address] [facility] [address] [place] [phone] Phone Care Team Providers Care Check Weigher Name Role Phone Fernando Mendes MD Primary Care Provider [phone] Fernando Mendes MD Unavailable [phone] Encounter Details Date Type Department Care Team (Late st Contact Info) Description 08/27/2024 Procedure Pass Echo Lab [address] [place] [address] Social History Tobacco Use Types Packs/Day Years [...] Assigned at Male 07/13/2020 1:02 PM EST Legal Sex Male 10:37 PM EDT Gender Identity Male 07/13/2020 1:02 PM EST Sexual Orientation Straight 07/13/2020 1: 02 PM EST documented as of this encounter Plan of Treatment Upcoming Encounters Date Type Department Care Team (Late st Contact Info) Description 11/12/2024 Procedure Pass Echo Lab [address] [place] [address] 07/16/2025 1:00 PM EST Office Visit [address] [place] [address] Fernando Mendes MD [address] [place] [address], [address] [place] [address] 11/12/2025 1:00 PM EDT Appointment Echo Lab [address] [place] [address] Alethea Saenz, [address] [address] 11/27/2025 1:00 PM EDT Office Visit [facility] [address] [place] [address] [address]rd Floor, [address] [place] [address] Soy Boles MD [address] [place] [address], [address] [place] [address] documented as of this encounter Visit Diagnoses Not on filedocumented in this encounter Additional Health Concerns Assessment Noted Time PHQ-2 Depression Total Score: 1 07/10/19 25 1:14 PM EST documented as of this encounter Care Teams Check Weigher Relationship Specialty Start Date End Date Fernando Mendes MD [address] [place] [address], [address] [place] [address] [email or web address] PCP - General Internal Medicine 07/16/20 Fernando Mendes MD [address] [place] [address], [address] [place] [address] [email or web address] Insurance Assigned Provider 09/08/23 documented as of this encounter Additional Source Comments The information contained in this document represents components of the legal health record. It is not the complete legal health record.[facility]
[2025-01-08 10:57] LABS: PSA,Total (Free>4and<10) 7.13 ng/mL (0.00-4.00)
[2025-01-09 12:14] LABS: Free Prostate Spec Ag 1.2 ng/mL; Percent Free Prostate Spec Ag 20 % (calc) (>25)
== END 2025-01-08 08:50 | disposition home or self-care (01) ==
LOC: HO.HMGCLDS 08:49
PROVIDERS: PCP Internal Medicine; Visit Provider Urology
DX: R33.9 Retention of urine, unspecified (principal); Z12.5 Encounter for screening for malignant neoplasm of prostate
CPT/HCPCS: 36415; 84153; 84154

== ENCOUNTER 2025-01-20 11:39 | Outpatient (AMB) | payer MEDICARE, SELFPAY ==
--- NOTE | 2025-01-20 11:40 | A.OFFVIS_ITS ---
Intake Visit Reasons: 6m/PSA/PVR Intake Note: Pt presents to the office today for a 6MO follow up/CIC(retention) PVR:223 mls Urology meds: Bethanecol, Tamsulosin Blood Thinner : none Labs done 01/08/25 : % Fr PSA :20, Total PSA :5.9 Credit Report Checker Required: No Accompanied by: Self / Same As Patient Allergies prednisone (PREDNISONE) Allergy (Intermediate, Verified 01/20/25 11:41) HEART PALPATATIONS, heart palpitations clindamycin (CLINDAMYCIN) Allergy (Unknown, Verified 01/20/25 11:41) C-DIFF seasonal allergies Allergy (Unknown, Uncoded 07/16/24 09:14) Sneezing HPI Comments Details: Bertin Davalos is a very pleasant male. He is a patient of Dr Quiros. He is seen for the following urologic conditions. - lower urinary tract symptoms - incomplete bladder emptying - recurrent UTI Has been on combination tamsulosin and bethanechol PVR remains approx 200 cc OPHELIA 2+, mild firmness right base but not clear nodule Neurogenic Bladder:? 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 PSA fell. Understands no sex with in 24 hours, no heavy exercise within 3 days ?12/20 PSA 6.1, 03/22 3.92 - falling. 07/24 5.4, 01/23 4.1, 01/24 4.9, 01/26 5.9 20% ? They are here for ?further management for incomplete emptying neurogenic bladder.? Urinary retention initially found?occurred with C.diff episode in hospital early December 2015.? Cystoscopy results?prostate mild in size - minimal obstruction.? Current management?alpha blockers - tamsulosin - prior PVR 200 ? Therapeutic plan?Follow PVR.? Recurrent UTI Did notice that therapy was dependent on omeprazole usage When he took the omeprazole every other day antibiotics more effective PFSH Medical History Facial skin lesion Skin lesion Spinal stenosis H/O right bundle branch block Stage 3 chronic kidney disease Anxiety Acid reflux Dyslipidemia HTN (hypertension) Surgical History History of surgical removal of skin lesion (~01/30/24) H/O wisdom tooth extraction History of left nephrectomy Family History Sister Dementia Father Leukemia Mother Brain cancer Paternal Grandfather Cancer Paternal Grandmother Cancer Social History Household Members: Spouse Housing: House Are you a primary healthcare science specialist to a significant other at home: No Do you presently have visiting nurse or other home services: No Alcohol intake: current Alcohol intake frequency: 3 or more drinks per day Alcohol type: wine Patient Tobacco Use Status: Former Tobacco user service: Yes Current occupational status: retired Review of Systems Const Denies chills and Denies fever(s) Card Reports no additional complaints and Denies syncope Resp Denies cough GI Denies abdominal pain and Denies heartburn Reports as per HPI and Denies change in libido Neuro Denies syncope Psych Denies change in libido Endo Denies change in libido Physical Exam Const General: cooperative, healthy appearing, comfortable and no acute distress Orientation/consciousness: patient oriented x3 HEENT Face and sinus: Yes normal facial exam Mouth: moist mucous membranes Neck Neck: Yes normal visual inspection, Yes full ROM and Yes trachea midline Chest Chest palpation & inspection: normal inspection of the chest Resp Effort & Inspection: normal respiratory effort, able to speak in complete sentences and no respiratory distress GI Inspection: Yes normal to inspection Back/Spine/Pelvis Cervical Spine: normal cervical lordosis Thoracic/Lumbar Spine: thoracic and lumbar spine normal to inspection Skin General skin exam: no rashes or lesions noted Neuro General: patient oriented x3, gait normal, tone normal and moves all extremities Extrem General: Yes normal to inspection and Yes capillary refill normal Assessment & Plan Assessment & Plan (1) BPH w urinary obs/LUTS: Code(s): N40.1 - Benign prostatic hyperplasia with lower urinary tract symptoms; N13.8 - Other obstructive and reflux uropathy Category: Medical (2) Elevated PSA: Code(s): R97.20 - Elevated prostate specific antigen [PSA] Category: Medical (3) Urinary retention with incomplete bladder emptying: Code(s): R33.9 - Retention of urine, unspecified Category: Medical Plan Continue surveillance Patient Instructions: This note is constructed using voice recognition software. While every effort has been made to ensure accuracy sap data architect errors may have been included. Imaging studies, laboratory and physical exam results were discussed and reviewed in detail. No major barriers to patient understanding were identified. An opportunity to ask questions regarding the treatment plan was provided. All questions were answered. The patient expressed understanding and agreement with the above treatment plan. The patient is aware they should contact our office by phone for worsening of their current condition or the appearance of new urologic symptoms. Compliance is encouraged with any medications and followup testing that is ordered. It is a privilege to participate in the urologic care of your patient. If you have any questions or concerns regarding treatment for the above conditions, or other urologic issues, please do not hesitate to contact me. The office tel ephone contact is [phone]. Sincerely, Dr Nathan Hodges MD, FAINA [facility] - Urology Compassionate Specialist Care for the Genitourinary System Coding Level of Care Code Est Pt Level 3 (37973) Complex EM visit Add On G2211 Diagnoses BPH w urinary obs/LUTS N40.1; N13.8 Elevated PSA R97.20 Urinary retention with incomplete bladder emptying R33.9
--- OUTSIDE RECORDS SUMMARY | 2025-01-20 13:11 | XMS_ITS | Encounter Summary ---
Author Organization [facility] Address [address] [facility] [address] [place] [address] Phone Care Team Providers Care Heating And Ventilating Worker Name Role Phone Fernando Mendes MD Primary Care Provider [phone] Fernando Mendes MD Unavailable [phone] Encounter Details Date Type Department Care Team (Late st Contact Info) Description 08/27/2024 Procedure Pass Echo Lab [address] [place] [address] Social History Tobacco Use Types Packs/Day Years [...] Info) Description 11/12/2024 Procedure Pass Echo Lab [address] [place] [address] 07/16/2025 1:00 PM EST Office Visit [address] [address] Fernando Mendes MD [address] [place] [address], [address] [place] [address] 11/12/2025 1:00 PM EDT Appointment Echo Lab [address] [place] [address] Alethea Saenz, [address] [address] 11/27/2025 1:00 PM EDT Office Visit [facility] [address] [place] [address] [address] Floor, [address] [place] [address] Soy Boles MD [address] [place] [address], [address] [place] [address] documented as of this encounter Visit Diagnoses Not on filedocumented in this encounter Additional Health Concerns Assessment Noted Time PHQ-2 Depression Total Score: 1 07/10/19 25 1:14 PM EST documented as of this encounter Care Teams Heating And Ventilating Worker Relationship Specialty Start Date End Date Fernando Mendes MD [address] [place] [address], [address] [place] [address] [email or web address] PCP - General Internal Medicine 07/16/20 Fernando Mendes MD [address] [place] [address], [address] [place] [address] [email or web address] Insurance Assigned Provider 09/08/23 documented as of this encounter Additional Source Comments The information contained in this document represents components of the legal health record. It is not the complete legal health record.[facility]
== END 2025-01-20 12:04 | disposition home or self-care (01) ==
LOC: HO.HUSH 11:40
PROVIDERS: PCP Internal Medicine; Visit Provider Urology
DX: N40.1 Benign prostatic hyperplasia with lower urinary tract symptoms (principal); N13.8 Other obstructive and reflux uropathy; R97.20 Elevated prostate specific antigen [PSA]; R33.9 Retention of urine, unspecified; Z13.9 Encounter for screening, unspecified
CPT/HCPCS: 99213; G2211

== ENCOUNTER → 2025-01-20 11:39 | Outpatient (BNVA) | payer MEDICARE, SELFPAY | PROVIDERS: PCP Internal Medicine; Visit Provider Urology | DX: N40.1 Benign prostatic hyperplasia with lower urinary tract symptoms (principal); N13.8 Other obstructive and reflux uropathy; R97.20 Elevated prostate specific antigen [PSA]; R33.9 Retention of urine, unspecified | CPT/HCPCS: 51798; 81003; 99212 ==